=== PATIENT | male | born 1965 | race Caucasian/White ===

== ENCOUNTER 2024-11-15 09:47 | Outpatient (CLI) | payer OTHER, SELFPAY ==
--- OUTSIDE RECORDS SUMMARY | 2024-11-15 09:56 | XMS_ITS | Clinical Summary ---
Author Organization [facility] Sena Marie Address [address] [place] [address] Phone Care Team Providers Care Pan Operator Name Role Phone Violeta Mckeon MD Primary Care Prov ider Allergies No known active allergies Medications gabapentin (NEURONTIN) 100 MG capsule Take 300 mg by mouth in the morning and 300 mg in the evening and 300 mg before bedtime. Active atorvastatin (LIPITOR) 40 MG tablet Take 80 mg by mouth 1 (one) time each day Active metoprolol succinate XL (TOPROL XL) 50 MG 24 hr tablet Take 100 mg by mouth 1 (one) time each day Do not crush or chew. Active meloxicam (MOBIC) 7.5 MG tablet Take 7.5 mg by mouth in the morning and 7.5 mg in the evening. Active omeprazole (PriLOSEC) [address] capsule Take 40 mg by mouth in the morning. Active hydroCHLOROthia zide 25 MG tablet Take 25 mg by mouth 1 (one) time each day Active hydrALAZINE 50 MG tablet Take 1 tablet (50 mg total) by mouth in the morning and 1 tablet (50 mg total) in the evening and 1 tablet (50 mg total) before bedtime. 90 tablet 3 01/01/2024 Active hydrOXYzine (ATARAX) 10 MG tablet 12/02/2023 Active cloNIDine (CATAPRES) 0.1 MG tablet 01/24/2022 Active amLODIPine (NORVASC) 10 MG tablet Take 1 tablet (10 mg total) by mouth every night 30 tablet 3 07/01/2024 Active Active Problems Problem Noted Date Diagnosed Date Carcinoma in situ of prostate 07/01/2024 Prostate specific antigen above reference range 01/01/2024 Acute myocardial infarction, unspecified site, episode of care unspecified 06/24/2023 Chronic kidney disease 06/24/2023 Coronary atherosclerosis of unspecified type of vessel, kenaitze or graft 06/24/2023 Esophageal reflux 06/24/2023 Essential hypertension 06/24/2023 Osteoarthrosis, unspecified whether generalized or localized, involving unspecified site 06/24/2023 Other and unspecified hyperlipidemia 06/24/2023 Sleep apnea 06/24/2023 Obesity 06/24/2023 Smoker 06/24/2023 Hypertensive chronic kidney disease, benign, with chronic kidney disease stage I through stage IV, or unspecified 06/24/2023 Social History Tobacco Use Types Packs/Day Years Used Date Smoking Tobacco: Every Day Cigarettes Smokeless Tobacco: Current Tobacco Cessation:Ready to Q uit: Not Asked; Counseling Given: Not Answered Alcohol Use Standard Drinks/Week Comments Yes 2 (1 standard drink = 0.6 oz pur e alcohol) Sex and Gender Information Value Date Recorded Sex Assigned at Not on file Legal Sex Male 7:19 PM EST Gender Identity Not on file Sexual Orientation Not on file Last Filed Vital Signs Vital Sign Reading Time Taken Comments Blood Pressure 180/70 07/01/2024 1:12 PM PDT Pulse 65 07/01/2024 1:12 PM PDT Temperature - - Respiratory Rate - - Oxygen Saturation - - Inhaled Oxygen Concentration - - Weight 97.1 kg (214 lb) 07/01/2024 1:12 PM PDT Height 182.9 cm (6') 07/01/2024 1:12 PM PDT Body Mass Index 29.02 07/01/2024 1:12 PM PDT Plan of Treatment Upcoming Encounters Date Type Department Care Team (Late st Contact Info) Description 12/23/2024 1:00 PM PDT Office Visit [facility] Marie [address] [place] [address] Joaquina Perez MD [address] [place] [phone] Health Maintenance Due Date Last Done Comments Hepatitis B Vaccine (1 of 3 - 19+ 3-dose series) 12/17 Pneumococcal Vaccine: 50+ Years (1 of 2 - PCV) 987 Colorectal Cancer Screening: Annual FOBT 12/17/2016 Colorectal Cancer Screening: Colonoscopy 12/17/2016 Colorectal Cancer Screening: Sigmoidoscopy 12/17/2016 Influenza Vaccine (#1) 2024 Insurance Care [facility] Cigna Care Teams Pan Operator Relationship Specialty Start Date End Date Violeta Mckeon MD [facility] [address] PCP - General Family Medicine 05/22/23
--- OUTSIDE RECORDS SUMMARY | 2024-11-15 09:56 | XMS_ITS | Encounter Summary ---
Author Name [facility] [place] Organization [facility] [place] Address [address] [place] [address] Insurance Providers: All historical and current Section Date Range: From patient's date of to the date document was created. This section includes the names of all active insurance providers for the patient. Insurance Provider Type of Coverage Plan Name Start of Policy Coverage End of Policy Coverage Group Number Member ID Insurance Provider's Telephone Number Policy Case's Name Patient's Relationship to Policy Case NavigatorMD [facility] [address] [place] Apr 07, 2022 [id number] [facility] PATIENT [employer] MENTAL HEALTH [place] Apr 07, 2022 [id number] [phone] [facility] [place] [id number] PRESCRIPT ION CIGUG [id number] Apr 07, 2022 [id number] [facility] PATIENT Selected Encounter This section includes the information on record at [place] for the Encounter. Date/Time Encounter Type Encounter Description Reason Provider Source May 17, 2024 09:00 AM Outpatient Encounter GENERAL INTERNAL MEDICINE ICD-10-CM Z02.89 Encounter for other administrative examinations SHILOH PIEDRA Encounter Template Text not used by [place] Assessments - Encounter Diagnoses This section includes the primary and secondary diagnoses documented for the Encounter. Date/Time Primary/Secondary Diagnosis Diagnosis Name Provider Source May 17, 2024 11:26 AM PRIMARY Encounter for other administrative examinations CARYN PIEDRA [facility] Plan of Treatment: Future Appointments (+ 6 months) and Future Tests (+/- 45 days) The Plan of Treatment section includes future care activities for the patient from all [place] treatmentfacilities. This section includes future appointments and future orders which are active, pending or scheduled. Future Appointments This section includes appointments that were scheduled to occur 6 months from the date of the Encounter, up to a maximum of 20 appointments. The data comes from all [place] treatment facilities. Appointment Date/Time Appointment Type Appointme nt Facility Name Jun 03, 2024 10:00 AM AMBULATORY - MEDICINE [facility] Encounter Notes: All associated encounter notes This section contains the clinical notes associated to the Encounter. Date/Time Encounter Note(s) Provider Source May 17, 2024 09:00 AM C & P EXAMINATION NOTE: LOCAL TITLE: C&P EXAMINATION STANDARD TITLE: C & P EXAMINATION NOTE DATE OF NOTE: MAY 17, 2024@09:00 ENTRY DATE: MAY 17, 2024@09:57:33 AUTHOR: BELA PIEDRA EXP COSIGNER: URGENCY: STATUS: COMPLETED MALE REPRODUCTIVE ORGAN CONDITIONS (INCLUDING PROSTATE CANCER) Disability Benefits Questionnaire Name of Claimant/: Bonilla Benton Note to examiner - The is applying to the [employer] (VA) for disability benefits. VA will consider the information you provide on this questionnaire as part of their evaluation in processing the 's claim. Is this DBQ being completed in conjunction with a VA C&P Examination Request? [X] Yes [ ] No How was the examination completed? (check all that apply) [X] In-person examination [ ] Records reviewed [ ] Examination via approved video telehealth [ ] Other, please specify in comments box Comments: Acceptable Clinical Evidence ([place]) -------- Indicate the method used to obtain medical information to complete this document: [ ] Review of available records (without in-person or video telehealth examination) using the Acceptable Clinical Evidence ([place]) process because the existing medical evidence provided sufficient information on which to prepare the questionnaire and such an examination will likely provide no additional relevant evidence. [ ] Review of available records in conjunction with an interview with the [place] (without in-person or telehealth examination) using the [place] process because the existing medical evidence supplemented with an interview provided sufficient information on which to prepare the questionnaire and such an examination would likely provide no additional relevant evidence. Evidence Review Evidence reviewed (check all that apply): [X] [place] electronic health record [X] [place] e-folder Evidence Comments: Tab A- PMR Prostate cancer Receipt date:03/11/2024 Document ID: {[id number]} Physician Details: [facility] [address] [place] [address] [address] [address] 02/19/2024 PROSTATE BIOPSY PATHOLOGY REPORT: ADENOCARCINOMA OF THE PROSTATE Tab B- POA 077/SUGEY, Y-N Receipt date:08/12/2006 Document ID: {[id number]}:NOTED 1. Diagnosis Note: These are condition(s) for which an evaluation has been requested on the exam request form (Internal [place]) or for which the [place] has requested medical evidence be provided for submission to [place]. 1A. List the claimed condition(s) that pertain to this questionnaire: Prostate cancer Note: These are the diagnoses determined during this current evaluation of the claimed condition(s) listed above. If there is no diagnosis, if the diagnosis is different from a previous diagnosis for this condition, or if there is a diagnosis of a complication due to the claimed condition, explain your findings and reasons in the remarks section. Date of diagnosis can be the date of the evaluation if the clinician is making the initial diagnosis or an approximate date determined through record review or reported history. 1B. Does the [place] now have or has he ever been diagnosed with any conditions of the male reproductive system? [X] Yes [ ] No If yes, complete Item 1C 1C. Select diagnoses associated with the claimed condition(s). Check all that apply. [X] Neoplasms of the male reproductive system, including prostate cancer ICD code: C61 Date of diagnosis: February 2024 2. Medical History 2A. Describe the history, including onset and course, of the 's male reproductive organ condition(s), including prostate cancer. 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 Contention prostate cancer. The states that in February 2024 he was diagnosed with prostate cancer on prostate biopsy done to evaluate high PSA and further evaluation radiation therapy is planned later this month. He reports having no associated symptoms, and no history of other genitourinary procedure or surgery. 2B. Does the [place]'s treatment plan include taking continuous medication for the diagnosed condition? [ ] Yes [X] No 2C. Has the had an orchiectomy? [ ] Yes [X] No For VA purposes, renal dysfunction includes evidence demonstrating the following for at least 3 consecutive months during the past 12 months: glomerular filtration rate (GFR) of less than 60 mL/min/1.73m2; or GFR from 60 to 89 mL/min/1.73m2 and the presence of at least one of the following: recurrent red blood cell (RBC) casts, white blood cell (WBC) casts, granular casts, structural kidney abnormalities (cystic, obstructive, or glomerular), or increased secretion of protein in the urine (proteinuria). GFR, estimated GFR (eGFR), and creatinine based approximations of GFR will be accepted for evaluation purposes when determined to be appropriate and calculated by a medical professional. Note: If the medical record contains multiple lab tests during this 12 month period, by at least 3 months, and there is no evidence to contradict those findings in the interim period, [place] will accept that the demonstrated renal dysfunction has persisted for at least 3 consecutive months during the past 12 months. 2D. Is there any renal dysfunction due to any conditions listed in the diagnosis section? [ ] Yes [X] No 3. Voiding Dysfunction 3A. Does the have a voiding dysfunction? [ ] Yes [X] No If yes, complete the remainder of section III. 3B. Etiology of voiding dysfunction: No response provided 3C. Does the voiding dysfunction cause urine leakage? [ ] Yes [ ] No 3D. Does the voiding dysfunction require the use of an appliance? [ ] Yes [ ] No 3E. Does the voiding dysfunction cause increased urinary frequency? [ ] Yes [ ] No 3F. Does the voiding dysfunction cause signs or symptoms of obstructed voiding? [ ] Yes [ ] No 4. Erectile Dysfunction 4A. Does the [place] have erectile dysfunction? [ ] Yes [X] No 5. Retrograde Ejaculation 5A. Does the [place] have retrograde ejaculation? [ ] Yes [X] No 6. Male Reproductive Organ Infections, Including Urinary Tract Infections 6A. Does the [place] have a history of chronic prostatitis, urethritis, epididymitis, orchitis, or urinary tract infections? [ ] Yes [X] No 7. Physical Exam 7A. Penis [ ] Normal [X] Not examined per [place]'s request [ ] Not examined per [place]'s request; reports normal anatomy with no penile deformity or abnormality [ ] Not examined; penis exam not relevant to condition [ ] Abnormal 7B. Testes [ ] Normal [X] Not examined per 's request [ ] Not examined per 's request; reports normal anatomy with no testicular deformity or abnormality [ ] Not examined; testicular exam not relevant to condition [ ] Abnormal 7C. Epididymis [ ] Normal [X] Not examined per 's request [ ] Not examined per 's request; [place] reports normal anatomy of epididymis with no deformity or abnormality [ ] Not examined; epididymis exam not relevant to condition [ ] Abnormal 7D. Prostate [X] Not examined per [place]'s request 8. Tumors and Neoplasms 8A. Does the [place] currently have, or has had, a benign or malignant neoplasm or metastases related to any condition in the diagnosis section? [X] Yes [ ] No If yes, complete the remainder of section VIII. 8B. Is the neoplasm [X] Malignant (If malignant complete the following): [X] Active [ ] In remission [X] Primary [ ] Secondary (metastatic) 8C. Has the completed treatment or is the [place] currently undergoing treatment for a benign or malignant neoplasm or metastases? [ ] Yes [X] No; watchful waiting No response provided 8D. Does the [place] currently have any residuals or complications due to the neoplasm (including metastases) or its treatment, other than those already documented in the report above? [ ] Yes [X] No 8E. If there are additional benign or malignant neoplasms or metastases related to any of the diagnoses in the diagnosis section, describe using the above format. No response provided 9. Other Pertinent Physical Findings, Complications, Conditions, Signs, Symptoms, and Scars 9A. Does the have any other pertinent physical findings, complications, conditions, signs or symptoms related to any conditions listed in the diagnosis section above? [ ] Yes [X] No 9B. Does the have any scars or other disfigurement (of the skin) related to any conditions or to the treatment of any conditions listed in the diagnosis section? [ ] Yes [X] No 10. Diagnostic Testing Note: If imaging studies, diagnostic procedures or laboratory testing have been performed and reflects the 's current condition, provide most recent results; no further studies or testing are required for this examination. 10A. Has a biopsy been performed? [X] Yes [ ] No Date of biopsy: 02/19/2024 Results: PROSTATE BIOPSY PATHOLOGY REPORT: ADENOCARCINOMA OF THE PROSTATE 10B. Are there any other significant diagnostic test findings or results related to the claimed condition(s) and/or diagnosis(es) that were reviewed in conjunction with this examination? [ ] Yes [X] No 11. Functional Impact Note: Provide the impact of only the diagnosed condition(s), without consideration of the impact of other medical conditions or factors, such as age. 11A. Regardless of the [place]'s current employment status, do the conditions listed in the diagnosis section impact his/her ability to perform any type of occupational task (such as standing, walking, lifting, sitting, etc.)? [ ] Yes [X] No 12. Remarks 12A. Remarks (if any - please identify the section to which the remark pertains when appropriate). The was advised that this evaluation is performed for C&P purposes only, and follow-up with his physician for medical care is necessary. /lavonne/ Bela Piedra MD. Staff Physician Signed: 05/17/2024 09:57 BELA PIEDRA [facility]
--- OUTSIDE RECORDS SUMMARY | 2024-11-15 09:56 | XMS_ITS ---
Author Name [facility] [place] Organization [facility] [place] Address [address] [place] [address] Insurance Providers: All historical and current Section Date Range: From patient's date of to the date document was created. This section includes the names of all active insurance providers for the patient. Insurance Provider Type of Coverage Plan Name Start of Policy Coverage End of Policy Coverage Group Number Member ID Insurance Provider's Telephone Number Policy Case's Name Patient's Relationship to Policy Case [employer] [facility] [place] [place] Apr 07, 2022 [id number] [facility] PATIENT [employer] MENTAL HEALTH SUPER [place] [facility] [place] Apr 07, 2022 [id number] [facility] PATIENT [id number] PRESCRIPT ION CIGUG [id number] Apr 07, 2022 [id number] [facility] PAT[facility] Selected Encounter This section includes the information on record at [place] for the Encounter. Date/Time Encounter Type Encounter Description Reason Provider Source Jun 03, 2024 10:00 AM Outpatient Encounter GENERAL INTERNAL MEDICINE ICD-10-CM Z02.89 Encounter for other administrative examinations SHILOH PIEDRA Encounter Template Text not used by [place] Assessments - Encounter Diagnoses This section includes the primary and secondary diagnoses documented for the Encounter. Date/Time Primary/Secondary Diagnosis Diagnosis Name Provider Source Jun 04, 2024 10:03 AM PRIMARY Encounter for other administrative examinations [facility] Encounter Notes: All associated encounter notes This section contains the clinical notes associated to the Encounter. Date/Time Encounter Note(s) Provider Source Jun 03, 2024 10:00 AM C & P EXAMINATION NOTE: LOCAL TITLE: C&P EXAMINATION STANDARD TITLE: C & P EXAMINATION NOTE DATE OF NOTE: JUN 03, 2024@10:00 ENTRY DATE: JUN 03, 2024@10:50:19 AUTHOR: BELA PIEDRA EXP COSIGNER: URGENCY: STATUS: COMPLETED Medical Opinion Disability Benefits Questionnaire Name of patient/[place]: Bonilla Benton [place] and Evidence Review Indicate method used to obtain medical information to complete this document: [X] Review of available records (without in-person or video telehealth examination) using the Acceptable Clinical Evidence ([place]) process because the existing medical evidence provided sufficient information on which to prepare the questionnaire and such an examination will likely provide no additional relevant evidence. Evidence Review Evidence reviewed (check all that apply): [X] VA e-folder [X] VA electronic health record Evidence Comments: MEDICAL OPINION SUMMARY RESTATEMENT OF REQUESTED OPINION: a. Opinion from general remarks: CLAIM TYPE: SUPPLEMENTAL SPECIAL CONSIDERATIONS: NOT APPLICABLE INSUFFICIENT EXAM: NO ELECTRONIC CLAIMS FOLDER AVAILABLE. SUSU Generation Date: 05/31/2024 02:59:10 PM EST [place] Name: BONILLA BENTON [id number] [facility] [address] Phone: Alternate Phone: Email: [email or web address] File Number: [id number] ICN: [id number] : 1965 Gender: Male Exam Jurisdiction RO: 377 Sensitivity Level: 0 POA/VSO: 077 - AMVETS AMVETS AMVETS [facility] [address] [place] [address] [facility] Branch(es) of Service: Flat Entered: Jan 27, 1987 Released: Feb 04, 2007 Era(s) of Service: [employer] Date of claim: Mar 11, 2024 Attention C&P clinical staff - Claimants residing zip codes and ERRA instructions EP Code: 020 Claim Label: Nory [id number] (020) Benefit Type: CPL Post-Discharge Claim Payee Number: [id number] Remand: NO The will need to report for the following exam(s) unless the [place] process is utilized. Clinician: If using the [place] process to complete the DBQ, please explain the basis for the decision not to examine the [place], and identify the specific materials reviewed to complete the DBQ. Also if the exam is completed using [place], please review the [place]'s claims folder and indicate so in the exam report. DBQ Medical Opinion ___ The following contentions need to be examined: prostate cancer Classification: Cancer - Genitourinary Type: NEW Contention Priority Issues: PACT Is there a gender preference for the examiner? NO Standard Language Output Text: The [place] is claiming service connection for prostate cancer. Please examine the for a chronic disability related to his or her claimed condition and indicate the current level of severity. TYPE OF MEDICAL OPINION REQUESTED: Toxic Exposure Risk Activities. Does the [place] have a diagnosis of (a) prostate cancer that is at least as likely as not (likelihood is at least approximately balanced or nearly equal, if not higher) caused by (the) fine particular matter, AFFF foam, asbestos after considering the total potential exposure through all applicable deployments of the and the synergistic combined effect of all toxic exposure risk activities of the [place]? Rationale must be provided in the appropriate section. Please review the Veterans electronic folder(s) and state that it was reviewed in your report. Please provide medical opinion and rationale with supporting evidence. Additional Information: Document Type: Medical Treatment Record - Non-Government Facility, Subject: [facility] - Pet Scan 04/01/2024, Annotation: , Document ID: [id number], Upload Date: 04/09/2024, Page number: 1 Document Type: [place] Vamsi, Subject: Sec. 1119 Covered , Annotation: , Document ID: [id number], Upload Date: 03/18/2022, Page number: 1 Document Type: [facility], Subject: Sec 1117 Covered , Annotation: , Document ID: [id number], Upload Date: 06/27/2022, Page number: 1 Document Type: ALEXANDRA Memorandum, Subject: ALEXANDRA Memorandum, Annotation: , Document ID: [id number], Upload Date: 05/31/2024, Page number: 1 Document Type: C&P Exam, Subject: DBQ Male Reproductive System, Annotation: , Document ID: [id number], Upload Date: 05/17/2024, Page number: 1 Document Type: Medical Treatment Record - Non-Government Facility, Subject: [facility] Juan Daniel Cunningham MD 12/17/2023, Annotation: , Document ID: [id number], Upload Date: 03/16/2024, Page number: 1 Document Type: Medical Treatment Record - Non-Government Facility, Subject: [facility] - Prostate 02/05/2024, Annotation: , Document ID: [id number], Upload Date: 04/09/2024, Page number: 1 Document Type: Correspondence, Subject: null, Annotation: , Document ID: [id number], Upload Date: 03/11/2024, Page number: 1 Document Type: ILER IES Record, Subject: ILER-Negative, Annotation: , Document ID: [id number], Upload Date: 03/12/2024, Page number: 1 Document Type: DPRIS Response, Subject: DPRIS - , Annotation: [employer] (asbestos) pg. 23, 29, General Shipboard Firefighting pgs. 24, 66-, 71, Firefighting Luggage Attendant pgs. 24, 66-67, 71, Entry Exam pg. 52-56, Document ID: [id number], Upload Date: 06/19/2023, Page number: 1 For this Contention, [facility] expects a results package to at minimum include data pertaining to the following DBQ(s): DBQ Medical Opinion b. Indicate type of exam for which opinion has been requested: male reproductive TYPE OF MEDICAL OPINION PROVIDED: [ MEDICAL OPINION FOR TOXIC EXPOSURE RISK ACTIVITIES (ALEXANDRA) ] a. The claimed condition was at least as likely as not (likelihood is at least approximately balanced or nearly equal, if not higher) caused by the indicated toxic exposure risk activity(ies), after considering the total potential exposure through all applicable deployments of the and the synergistic, combined effect of all toxic exposure risk activities of the [place]. c. Provide rationale: Any and all tabs related to the claim condition in [facility] and [facility] treatment records were reviewed. 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 23, 29 & General Shipboards Firefighting & Firefighting Luggage Attendant pgs. 24, 66, 71 Document Type: [place] Vamsi, Subject: Sec. 1119 Covered , Annotation: , Document ID: [id number]: Document Type: [place] Vamsi, Subject: Sec 1117 Covered [place], Annotation: , Document ID: [id number]: March 09, 2022 and May 03, 2022 [place] Memos: [facility] [employer] Information System (GWVIS) confirms that the [place] named above served in the [facility] theater of operations, as defined by 38 CFR 3.317(e)(2), for at least one day between: November 05, 1990, through December 15, 2000 Document Type: ILER IES Record, Subject: ILER-Negative, Annotation: , Document ID: [id number]: No information reported Document Type: DPRIS Response, Subject: DPRIS - , Annotation: [employer] (asbestos) pg. 23, 29, General Shipboard Firefighting pgs. 24, 66-67, 71, Firefighting Luggage Attendant pgs. 24, 66-67, 71, Entry Exam pg. 52-56, Document ID: [id number], Upload Date: 06/19/2023: REVIEWED Document Type: C&P Exam, Subject: DBQ Male Reproductive System, Annotation: , Document ID: [id number], Upload Date: 05/17/2024: May 17, 2024 [place] C&P exam report with prostate cancer diagnosis in February 2024 Document Type: Medical Treatment Record - Non-Government Facility, Subject: [facility] Juan Daniel Cunningham MD 12/17/2023, Annotation: , Document ID: [id number]: December 17, 2023 urology record - elevated PSA with plan to further workup and likely prostate biopsy Document Type: Medical Treatment Record - Non-Government Facility, Subject: [facility] - Prostate 02/05/2024, Annotation: , Document ID: [id number]: February 05, 2024 prostate MRI: There are two suspicious PIRADS lesions as follows: Target #1 (SHALINI #1) A 1.5 cm PIRADS-5 within the paramidline midgland to apex as described above. There is contact of the capsular margin by 1.3 cm., and Target#2 (SHALINI #2) A 0.4 cm cm PIRADS-4 within the right peripheral zone base as described above. There is no evidence of macroscopic extra-capsular extension, neurovascular invasion or seminal vesical invasion. prostate gland is enlarged Document Type: Medical Treatment Record - Non-[facility] Facility, Subject: [facility] - Pet Scan 04/01/2024, Annotation: , Document ID: [id number]: April 01, 2024 PET scan: No evidence of metastatic disease Document Type: Correspondence, Subject: null, Annotation: , Document ID: [id number], Upload Date: 03/11/2024: Pathology report of prostate biopsy from February 19, 2024: Adenocarcinoma of the prostate DD 214 .S. 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 The 's post service treatment records reveal prostate cancer diagnosis in February 2024. The current medical literature does not support a causal relationship between the development of prostate cancer and AFFF and/or asbestos exposure. That said, prostate cancer is a presumptively considered by public law to be related to [employer] service with specific environmental hazards/burn pits exposure according to the [employer] Public Health Website (PACT ACT). /es/ Bela Piedra MD. Staff Physician Signed: 06/03/2024 10:50 PIEDRABELA BUENOIDREINA [facility]
--- OUTSIDE RECORDS SUMMARY | 2024-11-15 09:57 | XMS_ITS | Continuity of Care Document ---
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 It does not include entries that were removed or entered in error. 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 Positive Interpretation Unknown Organization Aftercare Following Surgery Active Condition [facility] URINARY TRACT INFECTION Inactive Condition DoD Blood Pressure Isolated Elevated Active Condition [facility] INGUINAL HERNIA Inactive Condition [facility] Aftercare Following Surgery Of Digestive System Inactive Condition [facility] Dietary Counseling Pertaining To Specific Condition Active Condition [facility] Inquiry And Counseling: Functional Status At Home Active Condition [facility] DYSPLASTIC NEVUS Active Condition [facility] visit for: refer patient without exam or treatment Active Condition [facility] OVERWEIGHT Active Condition [facility] NICOTINE DEPENDENCE Active Condition [facility] visit for: screening exam Active Condition [facility] visit for: ears / hearing exam Active Condition [facility] Physical Examination Inactive Condition Custodial PE; addendum; pending VA claims exam and PE [facility] Administrative Evaluation Services Inactive Condition [facility] SLEEP APNEA ADULT Active Condition These results will be forwarded to Dr Ortiz for use in further treatment. [facility] visit for: services physical Inactive Condition [facility] FATIGUE Active Condition as noted a nathaniel, needs repeat test. Clinic will contact patient to arrange. 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 Ed pt re: hot compress BID-TID OU and AT's QID/PRN OU. [facility] REFRACTIVE ERROR - MYOPIA Active Condition No change to SR x at this time. [facility] VISUAL DISTURBANCES Active Condition Pt states intermittent visual blur at near OU -- two episodes last week, lasts 5-10 seconds. May be related to moderate dry eye syndrome. Will conduct HVF for diagnostic testing. DFE is normal. [facility] DISORDERS OF MUSCLE, LIGAMENT, AND FASCIA Active Condition [facility] OSTEOARTHRITIS LOCALIZED PRIMARY - KNEE Active Condition [facility] CHONDROMALACIA Active Condition [facility] TENDONITIS PATELLAR Active Condition Do[facility] PATELLOFEMORAL SYNDROME Active Condition [facility] ACUTE MENISCAL TEAR LATERAL Active Condition possible- must be ruled out [facility] NUMMULAR ECZEMATOUS DERMATITIS Active Condition [facility] THIGH STRAIN RIGHT Inactive Condition [facility] Diagnosis: ICD-10-CM Z02.89 Encounter for other administrative examinations Active Diagnosis [facility] Medications Combined list of outpatient medications from Department of Defense and Veterans Affairs facilities.Medications provided include 1) outpatient medications from the last 15 months, and 2) patient-reported medications. Medication Details Route Status Patient Instructions Prescription Expires Prescription Number Last Dispense Date Ordering Provider Order Date Order Qty Source amLODIPine 10 mg oral tablet 1 tab(s), Oral, Daily, # 90 tab(s), 3 total refill(s ), Maintena nce, Pharmacy : [facility] Oral (given by mouth) Ordered 2 2021 90.0 [id number]-[id number] [facility] amLODIPine 5 mg oral tablet 1 tab(s), Oral, Daily, # 90 tab(s), 3 total refill(s ), Maintena nce Oral (given by mouth) Discont inued 01/16/2022 1 2021 90.0 [id number] [facility] Padmin[place] amLODIPine/ valsartan/h ydrochlorot hiazide 5 mg-160 mg-25 mg oral tablet amLODIPi ne/valsa rtan/hyd rochloro thiazide 5 mg-160 mg-25 mg oral tablet Start Date: 02/03/20 Stop Date: 09/25/20 Status: Disconti nushirley Repeat number: 1 Discont inued 09/25/20202020 No Facilit y Access amLODIPine/ valsartan/h ydrochlorot hiazide 5 mg-160 mg-25 mg oral tablet 1 tab(s), Oral, Daily, for blood pressure , # 90 tab(s), 3 total refill(s ), Maintena nce Oral (given by mouth) Discont inued 09/26/20202020 90.0 [id number] 81 mg oral delayed release tablet 1 tab(s), Oral, every 24 hr, # 30 tab(s), 0 total refill(s ), Maintena nce, Pharmacy : [facility] Oral (given by mouth) Ordered 2 2021 30.0 [id number]-N [facility] gabapentin 300 mg capsule 300 mg, Oral, every day at bedtime, # 30 EA, 2 total refill(s ), Hard Stop Oral (given by mouth) Discont inued 12/12/2020 1 2020 30.0 Ambulat ory Pharmac y hydroCHLORO thiazide 25 mg, Oral, Tablet, First Dose: 01/15/22 11:00:00 AM CDT, 01/15/20 16:41:00 PDT Oral (given by mouth) Complet ed 01/15/20222021 0029AN [facility] hydroCHLORO thiazide 25 mg oral tablet 1 tab(s), Oral, Daily, for blood pressure , # 90 tab(s), 3 total refill(s ), Maintena nce Oral (given by mouth) Discont inued 01/16/2022 1 2021 90.0 [id number] [facility] [place] hydroCHLORO thiazide 25 mg oral tablet 1 tab(s), Oral, Daily, for blood pressure , # 90 tab(s), 3 total refill(s ), Maintena nce, Pharmacy : [facility] Oral (given by mouth) Ordered 2 2021 90.0 [id number]-N [facility] levoFLOXaci n 750 mg oral tablet 1 tab(s), Oral, every 24 hr, X 14 days, # 14 tab(s), 0 total refill(s ), Acute, 07/15/21 6:36:00 PM CDT, Pharmacy : [facility] Oral (given by mouth) Complet ed 07/15/2021 2 2021 14.0 0029AN [facility] Lipitor 80 mg oral tablet 1 tab(s), Oral, every 24 hr, # 30 tab(s), 0 total refill(s ), Maintena nce, Pharmacy : [facility] Oral (given by mouth) Ordered 2 2021 30.0 0029AN [facility] naproxen 500 mg oral tablet 1 tab(s), Oral, BID, X 14 days, # 28 tab(s), 0 total refill(s ), Acute, 07/15/21 6:36:00 PM CDT, Pharmacy : [facility] Oral (given by mouth) Complet ed 07/15/2021 2 2021 28.0 0029AN [facility] propranolol 60 mg oral tablet 1 tab(s), Oral, BID, # 180 tab(s), 3 total refill(s ), Maintena nce Oral (given by mouth) Ordered 2020 180.0 [id number] [facility] Tylenol 325 mg oral tablet 2 tab(s), Oral, every 4 hr, PRN pain or fever, X 14 days, # 50 tab(s), 0 total refill(s ), Acute, 07/15/21 6:36:00 PM CDT, Pharmacy : [facility] Oral (given by mouth) Complet ed 07/15/2021 2 2021 50.0 0029AN [facility] valsartan 160 mg oral tablet 1 tab(s), Oral, Daily, for blood pressure , # 90 tab(s), 3 total refill(s ), Maintena nce Oral (given by mouth) Discont inued 01/16/2022 1 2021 90.0 [id number] valsartan 160 mg oral tablet 1 tab(s), Oral, Daily, for blood pressure , # 90 tab(s), 3 total refill(s ), Nita gonzalez, Pharmacy : [facility] Oral (given by mouth) Ordered 2 2021 90.0 0029A-N [facility] Allergies, Adverse Reactions, Alerts Combined list of allergies from Department of Defense and Veterans Affairs facilities. It does not include entries that were removed or entered in error. Substance Category Reaction Severity Reaction type Status Date Reported Comments Source No Known Allergies Drug allergy (disorder) active 05/14/2007 [facility] Immunizations Combined list of available immunizations from the Department of [facility] and Veterans Affairs facilities. Immunization Series Date Given Administered By Site Reaction Lot Number CVX Code Drug Shoulder Puncher Status Comments Source COVID-19 ([employer]), VECTOR-NR, [id number], PF, 0.5 ML 1 2020 212 complet ed HISTORICA L INFORMATI ON - FROM OTHER [facility] tetanus, diphtheria, acellular pertu is 2014 zzRig ht Arm [id number] sanofi pasteur complet ed tetanus, diphtheri a, acellular pertussis 09/15/14 Given Ambulat ory Pharmac y tetanus toxoid, reduced diphtheria toxoid, and acellular pertu is vaccine, adsorbed 0 2014 Unknown, Provider [id number] Sanofi Pasteur ([facility]) complet ed tetanus toxoid, reduced diphtheri a toxoid, and acellular pertussis vaccine, adsorbed DoD typhoid vaccine, inactivated 2004 UNKNOWN 101 Unknown complet ed typhoid vaccine, inactivat ed 05/17/04 Given Ambulat ory Pharmac y typhoid vaccine, parenteral, other than acetone-kille d, dried 1 2004 Unknown, Provider UNKNOWN 41 Unknown (UNK) complet ed typhoid vaccine, parentera l, other than acetone-k illed, dried [facility] influenza virus vaccine,split 2004 [id number] 15 Unknown complet ed influenza virus vaccine,s plit 04/26/04 Given Ambulat ory Pharmac y influenza virus vaccine, split virus (incl. purified surface antigen)-reti red CODE 1 2004 Unknown, Provider [id number] 15 Other (OTH) complet ed influenza virus vaccine, split virus (incl. purified surface antigen)- retired CODE DoD influenza virus vaccine,split 2003 [id number] [employer] complet ed influenza virus vaccine,s plit 04/28/03 Given Ambulat ory Pharmac y influenza virus vaccine, split virus (incl. purified surface antigen)-reti red CODE 1 2003 Unknown, Provider [id number] Ruddy (EVN) complet ed influenza virus vaccine, split virus (incl. purified surface antigen)- retired CODE DoD influenza virus vaccine,split 2001 [id number] 15 Unknown complet ed influenza virus vaccine,s plit 02/24/02 Given Ambulat ory Pharmac y influenza virus vaccine, split virus (incl. purified surface antigen)-reti red CODE 1 2001 Unknown, Provider [id number] 15 Other (OT) complet ed influenza virus vaccine, split virus (incl. purified surface antigen)- retired CODE DoD typhoid vaccine, inactivated 2001 [id number] sanofi pasteur complet ed typhoid vaccine, inactivat ed 12/23/01 Given Ambulat ory Pharmac y typhoid vaccine, parenteral, other than acetone-kille d, dried 1 2001 Unknown, Provider [id number] Sanofi Pasteur ([facility]) complet ed typhoid vaccine, parentera l, other than acetone-k illed, dried DoD influenza virus vaccine,split 2000 [id number] 15 Unknown complet ed influenza virus vaccine,s plit 04/03/01 Given Ambulat ory Pharmac y influenza virus vaccine, split virus (incl. purified surface antigen)-reti red CODE 1 2000 Unknown, Provider [id number] 15 Other (OT) complet ed influenza virus vaccine, split virus (incl. purified surface antigen)- retired CODE DoD yellow fever vaccine 1999 UNKNOWN 37 Unknown complet ed yellow fever vaccine 11/12/99 Given Ambulat ory Pharmac y typhoid vaccine, inactivated 1999 UNKNOWN 101 Unknown complet ed typhoid vaccine, inactivat ed 11/12/99 Given Ambulat ory Pharmac y yellow fever vaccine 1 1999 Unknown, Provider UNKNOWN 37 Unknown (UNK) complet ed yellow fever vaccine DoD typhoid vaccine, parenteral, other than acetone-kille d, dried 1 1999 Unknown, Provider UNKNOWN 41 Unknown (UNK) complet ed typhoid vaccine, parentera l, other than acetone-k illed, dried DoD influenza virus vaccine,split 1997 UNKNOWN 15 Unknown complet ed influenza virus vaccine,s plit 03/14/98 Given Ambulat ory Pharmac y influenza virus vaccine, split virus (incl. purified surface antigen)-reti red CODE 1 1997 Unknown, Provider UNKNOWN 15 Unknown (UNK) complet ed influenza virus vaccine, split virus (incl. purified surface antigen)- retired CODE DoD tetanus-dipht h toxoids (Td) adult/adol 1997 UNKNOWN 09 Unknown complet ed tetanus-d iphth toxoids (Td) adult/ado l 02/13/98 Given Ambulat ory Pharmac y tetanus and diphtheria toxoids, adsorbed, preservative free, for adult use (2 Lf of tetanus toxoid and 2 Lf of diphtheria toxoid) 1 1997 Unknown, Provider UNKNOWN 09 Unknown (UNK) complet ed tetanus and diphtheri a toxoids, adsorbed, preservat peyton free, for adult use (2 Lf of tetanus toxoid and 2 Lf of diphtheri a toxoid) DoD hepatitis A adult vaccine 1997 UNKNOWN 52 Unknown complet ed hepatitis A adult vaccine 12/01/97 Given Ambulat ory Pharmac y typhoid vaccine, inactivated 1997 UNKNOWN 101 Unknown complet ed typhoid vaccine, inactivat ed 12/01/97 Given Ambulat ory Pharmac y typhoid vaccine, parenteral, other than acetone-kille d, dried 1 1997 Unknown, Provider UNKNOWN 41 Unknown (UNK) complet ed typhoid vaccine, parentera l, other than acetone-k illed, dried DoD hepatitis A vaccine, adult dosage 2 1997 Unknown, Provider UNKNOWN 52 Unknown (UNK) complet ed hepatitis A vaccine, adult dosage DoD yellow fever vaccine 1996 UNKNOWN 37 Unknown complet ed yellow fever vaccine 04/04/97 Given Ambulat ory Pharmac y yellow fever vaccine 1 1996 Unknown, Provider UNKNOWN 37 Unknown (UNK) complet ed yellow fever vaccine DoD poliovirus vaccine, live, oral 1996 UNKNOWN 02 Unknown complet ed polioviru s vaccine, live, oral 02/14/97 Given Ambulat ory Pharmac y trivalent poliovirus vaccine, live, oral 1 1996 Unknown, Provider UNKNOWN 02 Unknown (UNK) complet ed trivalent polioviru s vaccine, live, oral DoD measles/mumps /rubella virus vaccine 1993 UNKNOWN 03 Unknown complet ed measles/m umps/rube lla virus vaccine 12/24/93 Given Ambulat ory Pharmac y measles, mumps and rubella virus vaccine 1 1993 Unknown, Provider UNKNOWN 03 Unknown (UNK) complet ed measles, mumps and rubella virus vaccine DoD meningococcal polysaccharid e (MPSV4) 1986 UNKNOWN 32 Unknown complet ed meningoco ccal polysacch aride (MPSV4) 01/30/87 Given Ambulat ory Pharmac y meningococcal polysaccharid e vaccine (MPSV4) 1 1986 Unknown, Provider UNKNOWN 32 Unknown (UNK) complet ed meningoco ccal polysacch aride vaccine (MPSV4) DoD Results Combined list of recent chemistry, hematology and other laboratory results from Department of Defense and Veterans Affairs, ranging from 15 months to all on record, depending upon the facility. Order Name Results Value Reference Range Date Interpretation Specimen Comments Source Chemistry POC Glucose 87 mg/dL 65 - 110 01/16 N Interpretiv e Data: RANDOM AND NO PANIC VALUE. Test results may be erroneously low if patient is severely dehydrated, severely hypotensive , in shock or in a hyperglycem ic-hypermol ar state (with +or without ketosis). [address] [place] [address] Chemistry POC Glucose 103 mg/dL 65 - 110 01/16 N Interpretiv e Data: RANDOM AND NO PANIC VALUE. Test results may be erroneously low if patient is severely dehydrated, severely hypotensive , in shock or in a hyperglycem ic-hypermol ar state (with +or without ketosis). [address] [place] [address] Chemistry Phosphorus 4.0 mg/dL 2.5 - 4.5 01/[address] [place] [address] Chemistry Magnesium Lvl 2.0 mg/dL 1.7 - 2.6 01/[address] [place] [address] Chemistry AST 17 U/L 12 - 39 01/[address] [place] [address] Chemistry Calcium 9.6 mg/dL 8.9 - 10.4 01/[address] [place] [address] Chemistry Albumin 4.2 g/dL 3.5 - 4.8 01/[address] [place] [address] Chemistry Alk Phos 89 U/L 40 - 129 01/16 N Interpretiv e Data: Increased intestinal alkaline phosphatase can be seen in blood group O and B secretors and after fatty meals. [address] [place] [address] Chemistry ALT 11 U/L 17 - 63 01/[address] [place] [address] Chemistry A/G Ratio 1.7 1.5 - 2.0 01/[address] [place] [address] Chemistry Globulin 2.5 g/dL 2.0 - 3.5 01/[address] [place] [address] Chemistry BUN/Creat Ratio 17.8 10.0 - 25.0 01/[address] [place] [address] Chemistry AGAP 12 mmol/L 6 - 16 01/[address] [place] [address] Chemistry Potassium Lvl 3.4 mmol/L 3.5 - 5.1 01/[address] [place] [address] Chemistry Creatinine Level 0.9 mg/dL 0.7 - 1.2 01/[address] [place] [address] Chemistry BUN 16 mg/dL 6 - 20 01/[address] [place] [address] Chemistry Protein Total 6.7 g/dL 6.6 - 8.7 01/[address] [place] [address] Chemistry Bilirubin Total 0.46 mg/dL 0.15 - 1.00 01/[address] [place] [address] Chemistry Sodium 136 mmol/L 136 - 145 01/[address] [place] [address] Chemistry Glucose Lvl 120 mg/dL 75 - 99 01/16 H Interpretiv e Data: Fasting=75- 99 mg/dL Impaired Fasting Glucose= 100 to 125 mg/dL Provisional Diagnosis of Diabetes= equal or greater than 126 mg/dL Non-Fasting = 75-139 mg/dL Impaired Non-Fasting Glucose= 140-199 mg/dL Provisional Diagnosis of Diabetes= equal or greater than 200 mg/dL [address] [place] [address] Chemistry CO2 26 mmol/L 22 - 32 01/[address] [place] [address] Chemistry Chloride 98 mmol/L 98 - 107 01/[address] [place] [address] Hematolog y RBC 4.9 10^6/uL 4.4 - 5.7106 01/[address] [place] [address] Hematolog y WBC 5.7 10^3/uL 4.0 - 10.5103 01/[address] [place] [address] Hematolog y Hemoglobin 15.1 g/dL 13.8 - 17.0 01/[address] [place] [address] Hematolog y RDW CV 12.9 % 11.5 - 14.0 01/[address] [place] [address] Hematolog y MPV 9.7 fL 6.4 - 10.3 01/[address] [place] [address] Hematolog y MCV 84.9 fL 82.0 - 99.0 01/[address] [place] [address] Hematolog y Hematocrit 41.6 % 40.0 - 50.0 01/[address] [place] [address] Hematolog y MCHC 36.3 g/dL 32.0 - 36.0 01/[address] [place] [address] Hematolog y MCH 30.8 pg 28.0 - 33.0 01/[address] [place] [address] Hematolog y Platelets 182 10^3/uL 150 - [id number] 01/[address] [place] [address] Hematolog y Eos Absolute 0.27 10^3/uL 0.00 - 0.05689 01/[address] [place] [address] Hematolog y Monocyte % Auto 10.7 % 4.0 - 11.0 01/[address] [place] [address] Hematolog y Lymph Absolute 1.82 10^3/uL 1.00 - 4.71979 01/[address] [place] [address] Hematolog y Eosinophil % Auto 4.7 % 0.0 - 6.0 01/[address] [place] [address] Hematolog y Hardeman Absolute 0.61 10^3/uL 0.20 - 0.52638 01/[address] [place] [address] Hematolog y nRBC Absolute 0.00 10^6/uL 01/[address] [place] [address] Hematolog y nRBC % Auto 0.0 % 01/[address] Hematolog y Baso Absolute 0.04 10^3/uL 0.00 - 0.82970 01/[address] Hematolog y Basophil % Auto 0.7 % 0.0 - 4.0 01/[address] Hematolog y Imm. Granulocyt e Absolute 0.01 10^3/uL 0.00 - 0.41056 01/[address] Hematolog y Imm. Granulocyt e % 0.2 % 0.0 - 2.0 01/[address] Hematolog y Lymphocyte % Auto 31.8 % 15.0 - 45.0 01/[address] Hematolog y Neutrophil % Auto 51.9 % 40.0 - 80.0 01/[address] Hematolog y Neutro Absolute 2.97 10^3/uL 2.00 - 7.41314 01/[address] Chemistry eGFR CKD EPI 100 mL/min/1 .73_m2 01/16 Interpretiv e Data: Estimated Glomerular Filtration Rate (eGFR) calculated using the 2020 Chronic Kidney Disease-Epi demiology (CKD-EPI) Collaborati on creatinine equation; units of measure are mL/min/1.73 m2. Results are only valid for adults ( 18 years) whose serum creatinine is in steady state. eGFR calculation s are not valid for patients with acute kidney injury and for patients on dialysis. C reatinine-b ased estimates of kidney function may also be inaccurate in patients with reduced creatinine generation due to decreased muscle mass (e.g., malnutritio n, severe hypoalbumin emia, sarcopenia, chronic neuromuscul ar disease, amputations , severe heart failure or liver disease) and in patients with increased creatinine generation due to increased muscle mass (e.g., muscle builders, anabolic steroids) or increased dietary intake. As drug clearance is proportiona l to total GFR and not GFR indexed to body surface area (BSA), in individuals with a BSA substantial ly different than 1.73 m2, drug dosing should be based the reported eGFRvalue de-indexed from BSA by multiplying by the individual s BSA and dividing by 1.73. CKD is diagnosed based on abnormaliti es of kidney structure or function, present for >3 months, with implication s for health and disease. CKD is classified and staged based on cause, eGFR and albuminuria (quantified as urine albumin to creatinine ratio). An eGFR >60 mL/min/1.73 m2 in the absence of increased urine albumin excretion or structural abnormaliti es does not represent CKD.eGFR (mL/min/1.7 3 m2) CKD stage Interpretat ion 90 G1 Normal 60-89 G2 Mild decrease 45-59 G3A Mild to moderate decrease 30-44 G3B Moderate to severe decrease 15-29 G4 Severe decrease <15 G5 Kidney failure [address] [place] [address] Chemistry POC Glucose 104 mg/dL 65 - 110 01/16 N Interpretiv e Data: RANDOM AND NO PANIC VALUE. Test results may be erroneously low if patient is severely dehydrated, severely hypotensive , in shock or in a hyperglycem ic-hypermol ar state (with +or without ketosis). [address] [place] [address] Chemistry POC Glucose 107 mg/dL 65 - 110 01/15 N Interpretiv e Data: RANDOM AND NO PANIC VALUE. Test results may be erroneously low if patient is severely dehydrated, severely hypotensive , in shock or in a hyperglycem ic-hypermol ar state (with +or without ketosis). [address] [place] [address] Chemistry POC Glucose 99 mg/dL 65 - 110 01/15 N Interpretiv e Data: RANDOM AND NO PANIC VALUE. Test results may be erroneously low if patient is severely dehydrated, severely hypotensive , in shock or in a hyperglycem ic-hypermol ar state (with +or without ketosis). [address] [place] [address] Chemistry POC Glucose 106 mg/dL 65 - 110 01/15 N Interpretiv e Data: RANDOM AND NO PANIC VALUE. Test results may be erroneously low if patient is severely dehydrated, severely hypotensive , in shock or in a hyperglycem ic-hypermol ar state (with +or without ketosis). [address] [place] [address] Hematolog y Eosinophil % Auto 3.5 % 0.0 - 6.0 01/[address] [place] [address] Hematolog y Hardeman Absolute 0.56 10^3/uL 0.20 - 0.46008 01/[address] [place] [address] Hematolog y Basophil % Auto 0.8 % 0.0 - 4.0 01/[address] [place] [address] Hematolog y Eos Absolute 0.17 10^3/uL 0.00 - 0.70621 01/[address] [place] [address] Hematolog y Monocyte % Auto 11.4 % 4.0 - 11.0 01/[address] [place] [address] Hematolog y Neutro Absolute 2.65 10^3/uL 2.00 - 7.03570 01/[address] [place] [address] Hematolog y Neutrophil % Auto 54.1 % 40.0 - 80.0 01/[address] [place] [address] Hematolog y Lymph Absolute 1.47 10^3/uL 1.00 - 4.10063 01/[address] [place] [address] Hematolog y Lymphocyte % Auto 30.0 % 15.0 - 45.0 01/[address] [place] [address] Hematolog y Imm. Granulocyt e % 0.2 % 0.0 - 2.0 01/[address] [place] [address] Hematolog y nRBC % Auto 0.0 % 01/[address] [place] [address] Hematolog y Imm. Granulocyt e Absolute 0.01 10^3/uL 0.00 - 0.44317 01/15 N [id number][facility][id number] [facility] Hematolog y Baso Absolute 0.04 10^3/uL 0.00 - 0.99041 01/15 N [id number]Na [facility] Hematolog y nRBC Absolute 0.00 10^6/uL 01/15 N [id number]-Na [facility] Chemistry eGFR CKD EPI 96 mL/min/1 .73_m2 01/15 Interpretiv e Data: Estimated Glomerular Filtration Rate (eGFR) calculated using the 2020 Chronic Kidney Disease-Epi demiology (CKD-EPI) Collaborati on creatinine equation; units of measure are mL/min/1.73 m2. Results are only valid for adults ( 18 years) whose serum creatinine is in steady state. eGFR calculation s are not valid for patients with acute kidney injury and for patients on dialysis. C reatinine-b ased estimates of kidney function may also be inaccurate in patients with reduced creatinine generation due to decreased muscle mass (e.g., malnutritio n, severe hypoalbumin emia, sarcopenia, chronic neuromuscul ar disease, amputations , severe heart failure or liver disease) and in patients with increased creatinine generation due to increased muscle mass (e.g., muscle builders, anabolic steroids) or increased dietary intake. As drug clearance is proportiona l to total GFR and not GFR indexed to body surface area (BSA), in individuals with a BSA substantial ly different than 1.73 m2, drug dosing should be based the reported eGFRvalue de-indexed from BSA by multiplying by the individual s BSA and dividing by 1.73. CKD is diagnosed based on abnormaliti es of kidney structure or function, present for >3 months, with implication s for health and disease. CKD is classified and staged based on cause, eGFR and albuminuria (quantified as urine albumin to creatinine ratio). An eGFR >60 mL/min/1.73 m2 in the absence of increased urine albumin excretion or structural abnormaliti es does not represent CKD.eGFR (mL/min/1.7 3 m2) CKD stage Interpretat ion 90 G1 Normal 60-89 G2 Mild decrease 45-59 G3A Mild to moderate decrease 30-44 G3B Moderate to severe decrease 15-29 G4 Severe decrease <15 G5 Kidney failure 0029A-Na [facility] [place] Hematolog y Hemoglobin 15.6 g/dL 13.8 - 17.0 01/[address] [place] [address] Hematolog y Hematocrit 43.6 % 40.0 - 50.0 01/[address] Hematolog y MCV 86.2 fL 82.0 - 99.0 01/[address] Hematolog y WBC 4.9 10^3/uL 4.0 - 10.5103 01/[address] Hematolog y RBC 5.1 10^6/uL 4.4 - 5.7106 01/[address] [place] [address] Hematolog y MCHC 35.8 g/dL 32.0 - 36.0 01/[address] Hematolog y Platelets 182 10^3/uL 150 - [id number] 01/[address] Hematolog y MCH 30.8 pg 28.0 - 33.0 01/[address] Hematolog y RDW CV 13.3 % 11.5 - 14.0 01/[address] [place] [address] Hematolog y MPV 9.6 fL 6.4 - 10.3 01/[address] Hematolog y IPF % 1.6 % 1.1 - 6.1 01/[address] Chemistry Calcium 9.9 mg/dL 8.9 - 10.4 01/[address] Chemistry Chloride 99 mmol/L 98 - 107 01/[address] Chemistry ALT 12 U/L 17 - 63 01/[address] [place] [address] Chemistry AST 16 U/L 12 - 39 01/[address] Chemistry CO2 29 mmol/L 22 - 32 01/[address] Chemistry Albumin 4.4 g/dL 3.5 - 4.8 01/[address] [place] [address] Chemistry Alk Phos 97 U/L 40 - 129 01/15 N Interpretiv e Data: Increased intestinal alkaline phosphatase can be seen in blood group O and B secretors and after fatty meals. [address] [place] [address] Chemistry Globulin 2.7 g/dL 2.0 - 3.5 01/[address] [place] [address] Chemistry A/G Ratio 1.6 1.5 - 2.0 01/[address] [place] [address] Chemistry BUN/Creat Ratio 15.6 10.0 - 25.0 01/[address] [place] [address] Chemistry Potassium Lvl 3.3 mmol/L 3.5 - 5.1 01/[address] [place] [address] Chemistry AGAP 10 mmol/L 6 - 16 01/[address] [place] [address] Chemistry BUN 14 mg/dL 6 - 20 01/[address] [place] [address] Chemistry Sodium 138 mmol/L 136 - 145 01/[address] [place] [address] Chemistry Bilirubin Total 0.44 mg/dL 0.15 - 1.00 01/[address] [place] [address] Chemistry Creatinine Level 0.9 mg/dL 0.7 - 1.2 01/[address] [place] [address] Chemistry Glucose Lvl 119 mg/dL 75 - 99 01/15 H Interpretiv e Data: Fasting=75- 99 mg/dL Impaired Fasting Glucose= 100 to 125 mg/dL Provisional Diagnosis of Diabetes= equal or greater than 126 mg/dL Non-Fasting = 75-139 mg/dL Impaired Non-Fasting Glucose= 140-199 mg/dL Provisional Diagnosis of Diabetes= equal or greater than 200 mg/dL [address] [place] [address] Chemistry Protein Total 7.1 g/dL 6.6 - 8.7 01/[address] [place] [address] Chemistry Magnesium Lvl 1.9 mg/dL 1.7 - 2.6 01/[address] [place] [address] Chemistry Phosphorus 3.6 mg/dL 2.5 - 4.5 01/[address] [place] [address] Chemistry POC Glucose 90 mg/dL 65 - 110 01/15 N Interpretiv e Data: RANDOM AND NO PANIC VALUE. Test results may be erroneously low if patient is severely dehydrated, severely hypotensive , in shock or in a hyperglycem ic-hypermol ar state (with +or without ketosis). [address] [place] [address] Chemistry POC Glucose 77 mg/dL 65 - 110 01/14 N Interpretiv e Data: RANDOM AND NO PANIC VALUE. Test results may be erroneously low if patient is severely dehydrated, severely hypotensive , in shock or in a hyperglycem ic-hypermol ar state (with +or without ketosis). [address] [place] [address] Chemistry POC Glucose 77 mg/dL 65 - 110 01/14 N Interpretiv e Data: RANDOM AND NO PANIC VALUE. Test results may be erroneously low if patient is severely dehydrated, severely hypotensive , in shock or in a hyperglycem ic-hypermol ar state (with +or without ketosis). [address] [place] [address] Toxicolog y U Opiate Scrn Negative 22 ( 2 6:18 AM) 01/14 N Interpretiv e Data: Cutoff level reported as positive is => 300 ng/ml. FOR MEDICAL PURPOSES ONLY If result is positive, sample will be sent out to a reference laboratory for confirmator y testing via gas chromatogra phy-mass spectometry (GC/MS) [address] [place] [address] Toxicolog y U Cocaine Scrn Negative 21 ( 2 6:18 AM) 01/14 N Interpretiv e Data: Cutoff level reported as positive is => 300 ng/ml. FOR MEDICAL PURPOSES ONLY If result is positive, sample will be sent out to a reference laboratory for confirmator y testing via gas chromatogra phy-mass spectometry (GC/MS) [address] [place] [address] Toxicolog y U Cannab Scrn Negative 29 ( 2 6:18 AM) 01/14 N Interpretiv e Data: Cutoff level reported as positive is => 20 ng/ml. FOR MEDICAL PURPOSES ONLY If result is positive, sample will be sent out to a reference laboratory for confirmator y testing via gas chromatogra phy-mass spectometry (GC/MS) [address] [place] [address] Toxicolog y U PCP Scrn Negative 23 ( 2 6:18 AM) 01/14 N Interpretiv e Data: Cutoff level reported as positive is => 25 ng/ml. FOR MEDICAL PURPOSES ONLY If result is positive, sample will be sent out to a reference laboratory for confirmator y testing via gas chromatogra phy-mass spectometry (GC/MS) [address] [place] [address] Toxicolog y U Oxycodone Scrn Negative 19 ( 2 6:18 AM) 01/14 N Interpretiv e Data: Cutoff level reported as positive is => 100 ng/mL FOR MEDICAL PURPOSES ONLY If result is positive, sample will be sent out to a reference laboratory for confirmator y testing via gas chromatogra phy-mass spectometry (GC/MS) [address] [place] [address] Toxicolog y U Benzodia Scrn Negative 17 ( 2 6:18 AM) 01/14 N Interpretiv e Data: Cutoff level reported as positive is => 200 ng/ml. FOR MEDICAL PURPOSES ONLY If result is positive, sample will be sent out to a reference laboratory for confirmator y testing via gas chromatogra phy-mass spectometry (GC/MS) [address] [place] [address] Toxicolog y U Hemalatha Scrn Negative 27 ( 2 6:18 AM) 01/14 N Interpretiv e Data: Cutoff level reported as positive is => 200 ng/ml FOR MEDICAL PURPOSES ONLY If result is positive, sample will be sent out to a reference laboratory for confirmator y testing via gas chromatogra phy-mass spectometry (GC/MS) [address] [place] [address] Toxicolog y U Amph Scrn Negative 36 ( 2 6:18 AM) 01/14 N Interpretiv e Data: Cutoff level reported as positive is => 1000 ng/ml FOR MEDICAL PURPOSES ONLY If result is positive, sample will be sent out to a reference laboratory for confirmator y testing via gas chromatogra phy-mass spectometry (GC/MS) [address] [place] [address] Chemistry Creatinine , Urine LC 61 mg/dL 01/14 Result Comment: Performed At: [address] [place] [address] [id number] Juan Carlos Arroyo MD Ph:[phone] [place] [address] Chemistry Creatinine 24hr Ur LC COMMENT 01/14 Result Comment: Not applicable [address] [place] [address] Chemistry Metanephri ne/Creatin ine Ratio 62 ug/g 01/14 Result Comment: Reference Range: Adults: 22 - [address] [place] [address] Chemistry Metanephri ne, 24Hr Ur LC COMMENT 01/14 Result Comment: Not applicable This test was developed and its performance characteris tics determined by [facility]. It has not been cleared or approved by the Food and Drug Administrat ion. [address] [place] [address] Chemistry Normetanep h/Creat. Ratio LC 246 ug/g 01/14 Result Comment: Reference Range: Adults: 109 - [address] [place] [address] Chemistry Normetanep hrine, 24Hr Ur LC COMMENT 01/14 Result Comment: Not applicable This test was developed and its performance characteris tics determined by [facility]. It has not been cleared or approved by the Food and Drug Administrat ion. [address] [place] [address] Chemistry POC Glucose 82 mg/dL 65 - 110 01/14 N Interpretiv e Data: RANDOM AND NO PANIC VALUE. Test results may be erroneously low if patient is severely dehydrated, severely hypotensive , in shock or in a hyperglycem ic-hypermol ar state (with +or without ketosis). [address] [place] [address] Chemistry Lab Orders to Add: ldl choleste rol (direct) 01/[address] [place] [address] Chemistry Lab Order(s) Added? Yes ( 2 5:28 AM) 01/[address] [place] [address] Chemistry TSH 1.560 uIU/mL 0.270 - 4.200 01/14 N Interpretiv e Data: Use of biotin supplements greater than 10 mg/day has been shown to affect the accuracy of this test. Providers should encourage patients to cease all biotin supplements for a minimum of 72 hours before phlebotomy to avoid interferenc e. [address] [place] [address] Chemistry eAvg Glucose 117 01/14 Interpretiv e Data: An estimation of the mean blood glucose (MBG) level for the preceding 6-8 weeks is calculated from the HbA1c value. Conditions which shorten RBC survival may give a false low HbA1c and MGB levels. HbA1c and MGB values in the normal range can be seen in patients with wide variations in blood glucose levels. The estimated MBG should be correlated with the patient's self-monito red blood glucose data. [address] [place] [address] Chemistry Hemoglobin A1c 5.7 % 4.8 - 5.9 01/[address] [place] [address] Miscellan eous Sendouts Renin Activity.L C <0.167 ng/mL/hr 01/14 L Result Comment: This test was developed and its performance characteris tics determined by [facility]. It has not been cleared or approved by the Food and Drug Administrat ion. [address] [place] [address] Miscellan eous Sendouts Aldosteron e/Renin Ratio.LC >35.3 01/14 H Result Comment: Units: ng/dL per ng/mL/hr Performed At: [address] [id number] Prince Lemon MD Ph:[phone] [place] [address] Miscellan eous Sendouts Aldosteron e.LC 5.9 ng/dL 01/14 Result Comment: This test was developed and its performance characteris tics determined by [facility]. It has not been cleared or approved by the Food and Drug Administrat ion. [address] [place] [address] Miscellan eous Sendouts Methylmalo lupe, Serum.LC 122 nmol/L 01/14 Result Comment: This test was developed and its performance characteris tics determined by [facility]. It has not been cleared or approved by the Food and Drug Administrat ion. Performed At: [address] [id number] Prince Lemon MD Ph:[phone] [place] [address] Hematolog y IPF % 1.3 % 1.1 - 6.1 01/[address] [place] [address] Hematolog y Hematocrit 41.6 % 40.0 - 50.0 01/[address] [place] [address] Hematolog y MCV 86.8 fL 82.0 - 99.0 01/[address] [place] [address] Hematolog y RBC 4.8 10^6/uL 4.4 - 5.7106 01/[address] [place] [address] Hematolog y Hemoglobin 14.8 g/dL 13.8 - 17.0 01/[address] [place] [address] Hematolog y WBC 5.2 10^3/uL 4.0 - 10.5103 01/[address] [place] [address] Hematolog y MPV 9.7 fL 6.4 - 10.3 01/[address] [place] [address] Hematolog y Platelets 205 10^3/uL 150 - [id number] 01/[address] [place] [address] Hematolog y RDW CV 13.4 % 11.5 - 14.0 01/[address] [place] [address] Hematolog y MCH 30.9 pg 28.0 - 33.0 01/[address] [place] [address] Hematolog y MCHC 35.6 g/dL 32.0 - 36.0 01/[address] [place] [address] Chemistry Albumin 4.3 g/dL 3.5 - 4.8 01/[address] [place] [address] Chemistry Alk Phos 82 U/L 40 - 129 01/14 N Interpretiv e Data: Increased intestinal alkaline phosphatase can be seen in blood group O and B secretors and after fatty meals. [address] [place] [address] Chemistry ALT 10 U/L 17 - 63 01/[address] [place] [address] Chemistry AST 20 U/L 12 - 39 10/10 /[address] [place] [address] Chemistry Calcium 8.9 mg/dL 8.9 - 10.4 01/[address] [place] [address] Chemistry Chloride 103 mmol/L 98 - 107 01/[address] [place] [address] Chemistry CO2 25 mmol/L 22 - 32 01/[address] [place] [address] Chemistry Creatinine Level 0.9 mg/dL 0.7 - 1.2 01/[address] [place] [address] Chemistry Glucose Lvl 95 mg/dL 75 - 99 01/14 N Interpretiv e Data: Fasting=75- 99 mg/dL Impaired Fasting Glucose= 100 to 125 mg/dL Provisional Diagnosis of Diabetes= equal or greater than 126 mg/dL Non-Fasting = 75-139 mg/dL Impaired Non-Fasting Glucose= 140-199 mg/dL Provisional Diagnosis of Diabetes= equal or greater than 200 mg/dL [address] [place] [address] Chemistry Sodium 141 mmol/L 136 - 145 01/[address] [place] [address] Chemistry Bilirubin Total 0.15 mg/dL 0.15 - 1.00 01/[address] [place] [address] Chemistry Protein Total 6.8 g/dL 6.6 - 8.7 01/[address] [place] [address] Chemistry BUN 10 mg/dL 6 - 20 01/[address] [place] [address] Chemistry Potassium Lvl 3.6 mmol/L 3.5 - 5.1 01/14 N Result Comment: RESULT MAY BE INACCURATE DUE TO HEMOLYSIS. PLEASE RESUBMIT IF CLINICALLY INDICATED. [address] [place] [address] Chemistry AGAP 13 mmol/L 6 - 16 01/[address] [place] [address] Chemistry BUN/Creat Ratio 11.1 10.0 - 25.0 01/[address] [place] [address] Chemistry Globulin 2.5 g/dL 2.0 - 3.5 01/[address] [place] [address] Chemistry A/G Ratio 1.7 1.5 - 2.0 01/[address] Toxicolog y Phosphatid ylethanol. LC 364 ng/mL 01/14 H Result Comment: Analyzed compound: PEth 16:0/18:1. 1-palmitoyl -2-oleoyl-s n-glycero-3 -phosphoeth anol. Analysis performed by Liquid Chromatogra phy with Tandem Mass Spectrometr y (LC/MS/MS). Detection limit: 20 ng/mL PEth levels in excess of 20 ng/mL are considered evidence of moderate to heavy ethanol consumption . However, the Center for Substance Abuse Treatment (CSAT) advises caution in interpretat ion and use of biomarkers alone to assess alcohol use. Results should be interpreted in the context of all available clinical and behavioral information . Reference: Substance Abuse and Mental Health Services Administrat ion (2012). The Role of Biomarkers in the Treatment of Alcohol Use Disorders, 2012 Revision. Advisory, Volume 11, Issue 2. This test was developed and its performance characteris tics determined by [facility]. It has not been cleared or approved by the Food and Drug Administrat [facility]. Performed At: 01 [employer] [address] [place] [address] [id number] Vlad [facility] Ph:[phone] [place] [address] Hematolog y Monocyte % Auto 6.8 % 4.0 - 11.0 01/[address] Hematolog y Lymph Absolute 2.30 10^3/uL 1.00 - 4.81575 01/[address] Hematolog y Lymphocyte % Auto 44.5 % 15.0 - 45.0 01/[address] Hematolog y Neutro Absolute 2.23 10^3/uL 2.00 - 7.41333 01/[address] Hematolog y Neutrophil % Auto 43.0 % 40.0 - 80.0 01/[address] Hematolog y Imm. Granulocyt e Absolute 0.03 10^3/uL 0.00 - 0.99390 01/[address] Hematolog y nRBC Absolute 0.05 10^6/uL 01/[address] [place] [address] Hematolog y nRBC % Auto 0.9 % 01/[address] Hematolog y Eosinophil % Auto 4.1 % 0.0 - 6.0 01/[address] [place] [address] Hematolog y Imm. Granulocyt e % 0.6 % 0.0 - 2.0 01/[address] [place] [address] Hematolog y Baso Absolute 0.05 10^3/uL 0.00 - 0.99966 01/[address] Hematolog y Basophil % Auto 1.0 % 0.0 - 4.0 01/[address] Hematolog y Eos Absolute 0.21 10^3/uL 0.00 - 0.52718 01/[address] Hematolog y Hardeman Absolute 0.35 10^3/uL 0.20 - 0.86614 01/[address] [place] [address] Chemistry eGFR CKD EPI 103 mL/min/1 .73_m2 01/14 Interpretiv e Data: Estimated Glomerular Filtration Rate (eGFR) calculated using the 2020 Chronic Kidney Disease-Epi demiology (CKD-EPI) Collaborati on creatinine equation; units of measure are mL/min/1.73 m2. Results are only valid for adults ( 18 years) whose serum creatinine is in steady state. eGFR calculation s are not valid for patients with acute kidney injury and for patients on dialysis. C reatinine-b ased estimates of kidney function may also be inaccurate in patients with reduced creatinine generation due to decreased muscle mass (e.g., malnutritio n, severe hypoalbumin emia, sarcopenia, chronic neuromuscul ar disease, amputations , severe heart failure or liver disease) and in patients with increased creatinine generation due to increased muscle mass (e.g., muscle builders, anabolic steroids) or increased dietary intake. As drug clearance is proportiona l to total GFR and not GFR indexed to body surface area (BSA), in individuals with a BSA substantial ly different than 1.73 m2, drug dosing should be based the reported eGFRvalue de-indexed from BSA by multiplying by the individual s BSA and dividing by 1.73. CKD is diagnosed based on abnormaliti es of kidney structure or function, present for >3 months, with implication s for health and disease. CKD is classified and staged based on cause, eGFR and albuminuria (quantified as urine albumin to creatinine ratio). An eGFR >60 mL/min/1.73 m2 in the absence of increased urine albumin excretion or structural abnormaliti es does not represent CKD.eGFR (mL/min/1.7 3 m2) CKD stage Interpretat ion 90 G1 Normal 60-89 G2 Mild decrease 45-59 G3A Mild to moderate decrease 30-44 G3B Moderate to severe decrease 15-29 G4 Severe decrease <15 G5 Kidney failure [address] [place] [address] Chemistry Magnesium Lvl 1.9 mg/dL 1.7 - 2.6 01/[address] [place] [address] Chemistry Phosphorus 3.3 mg/dL 2.5 - 4.5 01/[address] [place] [address] Chemistry Cholestero l Total 248 mg/dL 130 - 200 01/14 H Interpretiv e Data: ADULT PEDIATRIC DESIRABLE: <200 <170 mg/dL BORDERLINE: 200-239 170-199 mg/dL HIGH: >239 >199 mg/dL [address] [place] [address] Chemistry HDL Cholestero l 29 mg/dL 29 - 71 01/14 N Interpretiv e Data: ADULT PEDIATRIC DESIRABLE: >59 >45 mg/dL BORDERLINE: 40-59 40-45 mg/dL LOW: <40 <40 mg/dL [address] [place] [address] Chemistry Non-HDL Cholestero l 219 mg/dL 30 - 129 01/14 H Interpretiv e Data: ADULT PEDIATRIC DESIRABLE: <160 <120 mg/dL BORDERLINE: 160-189 120-144 mg/dL HIGH: >189 >144 mg/dL Reference: (1) Adult Treatment Panel III (ATP III) Classificat ion by the National Cholesterol Education Program (NCEP) and (2) Expert Panel on Integrated guidelines for Cardiovascu lar Health and Risk Reduction in Children and Adolescents , 2002. [address] [place] [address] Chemistry LDL <0 mg/dL 65 - 130 01/14 L Interpretiv e Data: ADULT PEDIATRIC DESIRABLE: <130 <110 mg/dL BORDERLINE: 130-159 110-129 mg/dL HIGH: >159 >129 mg/dL LDL calculation invalid if Triglycerid es >400 mg/dL. [address] [place] [address] Chemistry Triglyceri lorena 1139 mg/dL 50 - 199 01/14 H Interpretiv e Data: ADULT PEDS(0-9) PEDS(10-19) DESIRABLE: <150 <75 <90 mg/dL BORDERLINE: 150-199 75-99 90-129 mg/dL HIGH: >199 >99 >129 mg/dL If non fasting Triglycerid e >400 mg/dL, recommend performing a fasting lipid panel. [address] [place] [address] Chemistry VLDL 228 mg/dL 8 - 30 01/14 H Interpretiv e Data: VLDL calculation invalid if Triglycerid es >400 mg/dL. [address] [place] [address] Chemistry LDL Chol (Direct) LC 93 mg/dL 01/14 Result Comment: Performed At: 01 [facility] [address] [place], [place] [id number] Alma Andrews MD Ph:[phone] [place] [address] Urinalysi s UA Bacteria 0 /HPF 07/[address] [place] [address] Urinalysi s UA Mucous Rare /LPF 07/[address] [place] [address] Urinalysi s UA WBC 1 /HPF 0 - 5 07/[address] [place] [address] Urinalysi s UA RBC <1 /HPF 0 - 2 07/[address] [place] [address] Miscellan eous Sendouts HCG Tumor Marker LC <1 m[iU]/mL 07/09 Result Comment: [employer] Electro[employer] iluminescen ce Immunoassay (ECLIA) The [employer] HCG + beta assay recognizes the holo-hormon e, human chorionic gonadotropi n (hCG), nicked forms of hCG, the beta-core fragment and the free beta-subuni t in human serum and plasma. Results obtained with different test methods or kits cannot be used interchange ably. This assay is intended for the early detection of . The result should not be used for treatment or for diagnostic purposes without confirmatio n of the diagnosis by another medically established diagnostic product or procedure. This test was developed and its performance characteris tics determined by [facility]. It has not been cleared or approved by the Food and Drug Administrat ion for use as a tumor marker. This test is not interpretab le as a tumor marker in females. Performed At: 01 [facility] [address] [place], [place] [id number] Alma Andrews MD Ph:[phone] [place] [address] Reproduct peyton Studies AFP 2.9 ng/mL 0.0 - 15.0 07/09 N Interpretiv e Data: Use of biotin supplements greater than 10 mg/day has been shown to affect the accuracy of this test. Providers should encourage patients to cease all biotin supplements for a minimum of 72 hours before phlebotomy to avoid interferenc e. [address] [place] [address] Chemistry LDH 156 U/L 135 - 225 07/[address] [place] [address] Hematolog y MCV 87.4 fL 82.0 - 99.0 07/[address] [place] [address] Hematolog y MCH 30.0 pg 28.0 - 33.0 07/[address] [place] [address] Hematolog y Hemoglobin 15.5 g/dL 13.8 - 17.0 07/[address] [place] [address] Hematolog y Hematocrit 45.1 % 40.0 - 50.0 07/[address] [place] [address] Hematolog y IPF % 1.3 % 1.1 - 6.1 07/[address] [place] [address] Hematolog y MCHC 34.4 g/dL 32.0 - 36.0 07/[address] [place] [address] Hematolog y Platelets 204 10^3/uL 150 - [id number] 07/[address] [place] [address] Hematolog y RDW CV 13.0 % 11.5 - 14.0 07/[address] [place] [address] Hematolog y MPV 9.7 fL 6.4 - 10.3 07/[address] [place] [address] Hematolog y WBC 10.3 10^3/uL 4.0 - 10.5103 07/[address] [place] [address] Hematolog y RBC 5.2 10^6/uL 4.4 - 5.7106 07/[address] [place] [address] Chemistry Bilirubin Total 0.51 mg/dL 0.15 - 1.00 07/[address] [place] [address] Chemistry Protein Total 6.8 g/dL 6.6 - 8.7 07/[address] [place] [address] Chemistry BUN 12 mg/dL 6 - 20 07/[address] Chemistry Potassium Lvl 4.0 mmol/L 3.5 - 5.1 07/[address] [place] [address] Chemistry AGAP 12 mmol/L 6 - 16 07/[address] [place] [address] Chemistry Chloride 102 mmol/L 98 - 107 07/[address] [place] [address] Chemistry CO2 27 mmol/L 22 - 32 07/[address] Chemistry Creatinine Level 1.0 mg/dL 0.7 - 1.2 07/[address] Chemistry Glucose Lvl 100 mg/dL 75 - 99 07/01 H Interpretiv e Data: Fasting=75- 99 mg/dL Impaired Fasting Glucose= 100 to 125 mg/dL Provisional Diagnosis of Diabetes= equal or greater than 126 mg/dL Non-Fasting = 75-139 mg/dL Impaired Non-Fasting Glucose= 140-199 mg/dL Provisional Diagnosis of Diabetes= equal or greater than 200 mg/dL [address] [place] [address] Chemistry Sodium 141 mmol/L 136 - 145 07/[address] [place] [address] Chemistry Albumin 4.6 g/dL 3.5 - 4.8 07/[address] Chemistry Alk Phos 102 U/L 40 - 129 07/01 N Interpretiv e Data: Increased intestinal alkaline phosphatase can be seen in blood group O and B secretors and after fatty meals. [address] [place] [address] Chemistry ALT 10 U/L 17 - 63 07/[address] [place] [address] Chemistry AST 14 U/L 12 - 39 07/[address] [place] [address] Chemistry Calcium 9.3 mg/dL 8.9 - 10.4 07/[address] [place] [address] Chemistry BUN/Creat Ratio 12.0 10.0 - 25.0 07/[address] Chemistry Globulin 2.2 g/dL 2.0 - 3.5 07/[address] Chemistry A/G Ratio 2.1 1.5 - 2.0 07/[address] [place] [address] Hematolog y Neutrophil % Auto 72.2 % 40.0 - 80.0 07/[address] [place] [address] Hematolog y Neutro Absolute 7.42 10^3/uL 2.00 - 7.52086 07/[address] [place] [address] Hematolog y Lymphocyte % Auto 19.6 % 15.0 - 45.0 07/[address] Hematolog y Lymph Absolute 2.01 10^3/uL 1.00 - 4.84448 07/[address] [place] [address] Hematolog y Monocyte % Auto 7.0 % 4.0 - 11.0 07/[address] [place] [address] Hematolog y Hardeman Absolute 0.72 10^3/uL 0.20 - 0.40349 07/[address] Hematolog y Eosinophil % Auto 0.8 % 0.0 - 6.0 07/[address] Hematolog y Eos Absolute 0.08 10^3/uL 0.00 - 0.54936 07/[address] [place] [address] Hematolog y Basophil % Auto 0.3 % 0.0 - 4.0 07/[address] [place] [address] Hematolog y Baso Absolute 0.03 10^3/uL 0.00 - 0.16418 07/[address] [place] [address] Hematolog y Imm. Granulocyt e % 0.1 % 0.0 - 2.0 07/[address] [place] [address] Hematolog y Imm. Granulocyt e Absolute 0.01 10^3/uL 0.00 - 0.90693 07/[address] [place] [address] Hematolog y nRBC % Auto 0.0 % 07/[address] [place] [address] Hematolog y nRBC Absolute 0.00 10^6/uL 07/[address] [place] [address] Chemistry eGFR CKD EPI 90 mL/min/1 .73_m2 07/01 Interpretiv e Data: Estimated Glomerular Filtration Rate (eGFR) calculated using the 2020 Chronic Kidney Disease-Epi demiology (CKD-EPI) Collaborati on creatinine equation; units of measure are mL/min/1.73 m2. Results are only valid for adults ( 18 years) whose serum creatinine is in steady state. eGFR calculation s are not valid for patients with acute kidney injury and for patients on dialysis. C reatinine-b ased estimates of kidney function may also be inaccurate in patients with reduced creatinine generation due to decreased muscle mass (e.g., malnutritio n, severe hypoalbumin emia, sarcopenia, chronic neuromuscul ar disease, amputations , severe heart failure or liver disease) and in patients with increased creatinine generation due to increased muscle mass (e.g., muscle builders, anabolic steroids) or increased dietary intake. As drug clearance is proportiona l to total GFR and not GFR indexed to body surface area (BSA), in individuals with a BSA substantial ly different than 1.73 m2, drug dosing should be based the reported eGFRvalue de-indexed from BSA by multiplying by the individual s BSA and dividing by 1.73. CKD is diagnosed based on abnormaliti es of kidney structure or function, present for >3 months, with implication s for health and disease. CKD is classified and staged based on cause, eGFR and albuminuria (quantified as urine albumin to creatinine ratio). An eGFR >60 mL/min/1.73 m2 in the absence of increased urine albumin excretion or structural abnormaliti es does not represent CKD.eGFR (mL/min/1.7 3 m2) CKD stage Interpretat ion 90 G1 Normal 60-89 G2 Mild decrease 45-59 G3A Mild to moderate decrease 30-44 G3B Moderate to severe decrease 15-29 G4 Severe decrease <15 G5 Kidney failure [address] [place] [address] Chemistry Lab Orders to Add: urine culture 07/[address] [place] [address] Chemistry Lab Order(s) Added? Yes (07/01/21 3:25 PM) 07/[address] [place] [address] Chemistry Lab Order(s) Added? Yes (07/01/21 2:38 PM) 07/[address] [place] [address] Chemistry Lab Orders to Add: GC chlamydi a urine 07/[address] [place] [address] Chemistry Lab Orders to Add: GC chlamydi a urine 07/01 Result Comment: No UA in lab. Notified ENS Darvin @ [address] [place] [address] Chemistry Lab Order(s) Added? No, see comment (07/01/21 2:23 PM) 07/[address] [place] [address] Urinalysi s UA Color Yellow 07/[address] [place] [address] Urinalysi s UA Spec [place] 1.019 1.005 - 1.030 07/[address] [place] [address] Urinalysi s UA Appear Clear 07/[address] [place] [address] Urinalysi s UA Clarity Clear 07/[address] [place] [address] Urinalysi s UA Leuk Esterase Negative (07/01/21 2:09 PM) 07/[address] [place] [address] Urinalysi s UA Mucous Rare /LPF 07/[address] [place] [address] Urinalysi s UA Bacteria Rare /HPF 07/[address] [place] [address] Urinalysi s UA WBC 1 /HPF 0 - 5 07/[address] [place] [address] Urinalysi s UA RBC 7 /HPF 0 - 2 07/[address] [place] [address] Urinalysi s UA Glucose Normal (07/01/21 2:09 PM) 07/[address] [place] [address] Urinalysi s UA Bili Negative (07/01/21 2:09 PM) 07/[address] [place] [address] Urinalysi s UA Protein 70 mg/dL 07/[address] [place] [address] Urinalysi s UA Blood Trace *ABN* (07/01/21 2:09 PM) 07/[address] [place] [address] Urinalysi s UA pH 7.0 5.0 - 7.5 07/[address] [place] [address] Urinalysi s UA Nitrite Negative (07/01/21 2:09 PM) 07/[address] [place] [address] Urinalysi s UA Ketones Negative (07/01/21 2:09 PM) 07/[address] [place] [address] Urinalysi s UA Urobilinog en Normal (07/01/21 2:09 PM) 07/[address] [place] [address] Infectiou s Disease GC Scrn Negative 31 (07/01/21 2:09 PM) 07/01 N Interpretiv e Data: The Chlamydia trachomatis and Neisseria gonorrhoeae assays using the Aptima Combo 2 assay kit on [employer] by [employer] are not FDA-approve d for conjunctiva l swab as specimen type. This source is validated and its performance characteris tics have been validated by [facility] IAW CLIA guidelines. [facility] is certified under the CLIA 1988 as qualified to perform high complexity clinical laboratory testing. THESE ASSAYS ARE NOT FDA-CLEARED OR VALIDATED BY THE MANUFACTURE R (Octonius) IN LESS THAN 14 YEAR AGE GROUP [address] [place] [address] Infectiou s Disease Chlamydia Scrn Negative 18 (07/01/21 2:09 PM) 07/01 N Interpretiv e Data: THESE ASSAYS ARE NOT FDA-CLEARED OR VALIDATED BY THE MANUFACTURE R ([employer]) IN LESS THAN 14 YEAR AGE GROUP [address] [place] [address] Vital Signs Combined list of inpatient and outpatient Vital Signs from Department of Defense and Veterans Affairs, ranging from 12 months to all on record, depending upon the facility. Vital Sign Value Date Comments Source Systolic Blood Pressure 158 mm[Hg] 01/17/20 02:30:[address] [place] [address] Diastolic Blood Pressure 104 mm[Hg] 022 02:30:[address] [place] [address] Respiratory Rate 16 br/min 01/16/2022 02:30:[address] [place] [address] Peripheral Pulse Rate 76 bpm 01/16/2022 02:30:[address] [place] [address] Temperature Oral 36.7 Lisa 01/16/2022 02:30:[address] [place] [address] Cuff Size Medium 01/16/2022 02:30:[address] [place] [address] Blood Pressure Location Right arm 01/17/20 02:30:[address] [place] [address] Mean Arterial Pressure, Cuff (Calc) 122 mm[Hg] 01/16/2022 02:30:[address] [place] [address] Blood Pressure Method Automatic 01/16/2022 02:30:[address] [place] [address] Systolic Blood Pressure 206 mm[Hg] 01/17/20 22 18:37:[address] [place] [address] Diastolic Blood Pressure 117 mm[Hg] 022 18:37:[address] [place] [address] Respiratory Rate 17 br/min 01/16/2022 18:37:[address] [place] [address] Peripheral Pulse Rate 66 bpm 01/16/2022 18:37:[address] [place] [address] Temperature Oral 36.6 Lisa 01/16/2022 18:37:[address] [place] [address] Mean Arterial Pressure, Cuff (Calc) 147 mm[Hg] 01/16/2022 18:37:00 [facility] Blood Pressure Method Automatic 01/16/2022 18:37:00 [facility] Blood Pressure Location Left arm 01/17/20 18:37:00 [facility] Cuff Size Medium 01/16/2022 18:37:00 [facility] Temperature Tympanic 36.8 Lisa 01/15/2022 22:17:00 [facility] Cuff Size Medium 01/15/2022 22:17:00 [facility] Respiratory Rate 17 br/min 01/15/2022 22:17:00 [facility] Systolic Blood Pressure 184 mm[Hg] 01/16/20 22:17:00 [facility] Diastolic Blood Pressure 121 mm[Hg] 022 22:17:00 [facility] Peripheral Pulse Rate 74 bpm 01/15/2022 22:17:00 [facility] Mean Arterial Pressure, Cuff (Calc) 142 mm[Hg] 01/15/2022 22:17:00 [facility] Blood Pressure Location Right arm 01/16/20 22:17:00 [facility] Blood Pressure Method Automatic 01/15/2022 22:17:00 [facility] Respiratory Rate 18 br/min 01/15/2022 11:35:00 [facility] Blood Pressure Location Right arm 01/16/20 11:35:00 [facility] Cuff Size Medium 01/15/2022 11:35:00 [facility] Blood Pressure Method Automatic 01/15/2022 11:35:00 [facility] Temperature Oral 36.8 Lisa 01/15/2022 11:35:00 [facility] Temperature Oral 36.7 Lisa 01/15/2022 18:06:00 [facility] Peripheral Pulse Rate 66 bpm 01/15/2022 18:06:00 [facility] Respiratory Rate 18 br/min 01/15/2022 18:06:00 [facility] Systolic Blood Pressure 179 mm[Hg] 01/16/20 18:06:00 [facility] Diastolic Blood Pressure 99 mm[Hg] 18:06:00 [facility] Cuff Size Medium 01/15/2022 18:06:00 [facility] Blood Pressure Location Right arm 01/16/20 18:06:00 [facility] Blood Pressure Method Automatic 01/15/2022 18:06:00 [facility] Mean Arterial Pressure, Cuff (Calc) 126 mm[Hg] 01/15/2022 18:06:00 [facility] Systolic Blood Pressure 163 mm[Hg] 01/17/20 06:00:00 [facility] Diastolic Blood Pressure 98 mm[Hg] 06:00:00 [facility] Mean Arterial Pressure, Cuff (Calc) 120 mm[Hg] 01/16/2022 06:00:00 [facility] Temperature Oral 36.7 Lisa 01/16/2022 06:00:00 [facility] Respiratory Rate 16 br/min 01/16/2022 06:00:00 [facility] Peripheral Pulse Rate 64 bpm 01/16/2022 06:00:00 [facility] Blood Pressure Location Right arm 01/17/20 06:00:00 [facility] Blood Pressure Method Automatic 01/16/2022 06:00:00 [facility] Cuff Size Medium 01/16/2022 06:00:00 [facility] Temperature Temporal Artery 36.4 Lisa 07/09/2021 20:46:00 [facility] Temperature Oral 36.6 Lisa 01/15/2022 06:31:00 [facility] Cuff Size Medium 01/16/2022 21:35:00 [facility] Blood Pressure Location Left arm 01/17/20 21:35:00 [facility] Mean Arterial Pressure, Cuff (Calc) 144 mm[Hg] 01/16/2022 21:35:00 [facility] Systolic Blood Pressure 189 mm[Hg] 01/17/20 21:35:00 [facility] Diastolic Blood Pressure 122 mm[Hg] 022 21:35:00 [facility] Respiratory Rate 17 br/min 01/16/2022 21:35:00 [facility] Blood Pressure Method Automatic 01/16/2022 21:35:[address] [place] [address] Peripheral Pulse Rate 76 bpm 01/16/2022 21:35:[address] [place] [address] Temperature Oral 36.8 Lisa 01/16/2022 21:35:00 [facility] Peripheral Pulse Rate 59 bpm 01/15/2022 14:26:00 [facility] Blood Pressure Method Automatic 01/15/2022 14:26:00 [facility] Blood Pressure Location Left arm 01/16/20 14:26:00 [facility] Cuff Size Medium 01/15/2022 14:26:[address] [place] [address] Temperature Oral 36.6 Lisa 01/15/2022 14:26:00 [facility] Systolic Blood Pressure 185 mm[Hg] 01/16/20 14:26:00 [facility] Diastolic Blood Pressure 103 mm[Hg] 022 14:26:00 [facility] Respiratory Rate 18 br/min 01/15/2022 14:26:00 [facility] Mean Arterial Pressure, Cuff (Calc) 130 mm[Hg] 01/15/2022 14:26:00 [facility] Mean Arterial Pressure, Cuff (Calc) 137 mm[Hg] 01/15/2022 11:41:00 [facility] Peripheral Pulse Rate 62 bpm 01/15/2022 16:37:00 [facility] Systolic Blood Pressure 184 mm[Hg] 01/16/20 16:37:00 [facility] Diastolic Blood Pressure 120 mm[Hg] 16:37:00 [facility] Temperature Oral 36.7 Lisa 01/16/2022 14:38:00 [facility] Respiratory Rate 17 br/min 01/16/2022 14:38:[address] [place] [address] Systolic Blood Pressure 197 mm[Hg] 01/17/20 14:38:00 [facility] Diastolic Blood Pressure 117 mm[Hg] 14:38:[address] [place] [address] Peripheral Pulse Rate 63 bpm 01/16/2022 14:38:00 [facility] Blood Pressure Location Right arm 01/17/20 14:38:00 [facility] Cuff Size Medium 01/16/2022 14:38:00 [facility] Blood Pressure Method Automatic 01/16/2022 14:38:00 [facility] Mean Arterial Pressure, Cuff (Calc) 144 mm[Hg] 01/16/2022 14:38:00 [facility] Systolic Blood Pressure 162 mm[Hg] 01/17/20 11:05:00 [facility] Diastolic Blood Pressure 112 mm[Hg] 11:05:00 [facility] Blood Pressure Method Automatic 01/16/2022 11:05:00 [facility] Blood Pressure Location Right arm 01/17/20 11:05:00 [facility] Cuff Size Medium 01/16/2022 11:05:00 [facility] Respiratory Rate 17 br/min 01/16/2022 11:05:00 [facility] Mean Arterial Pressure, Cuff (Calc) 129 mm[Hg] 01/16/2022 11:05:00 [facility] Temperature Oral 36.6 Lisa 01/16/2022 11:05:00 [facility] Peripheral Pulse Rate 56 bpm 01/16/2022 11:05:00 [facility] Encounters Combined list of: 1) Encounters from Department of Veterans Affairs facilities going backup to the last 18 months, not all VA inpatient encounters are included; 2) Encounters from the Department of Defense facilities going backup to 280 months. Location Location Details Encounter Type Encounter Number Reason For Visit Attending Provider ADM Date DC Date Status Disposition Source [facility]( art Team 1007) OUTPATIENT [id number] STAFF f/u on cat scan ZULY NAVARRETE 05/09 Released with Work/Duty Limitations [facility]( Smart Team 1007) [facility]( ysical Therapy Clinic [facility]) OUTPATIENT [id number] PATELLO FEMORAL SYNDROM E AHLTA SYSTEM ADMINISTRA TOR 05/20 [facility]( Physica l Therapy Clinic [facility]) [facility](Ph ysical Therapy Clinic [facility]) OUTPATIENT [id number] TAWNY DILLON 07/10 Released w/o Limitations [facility]( Physica l Therapy Clinic [facility]) [facility](10 07 Phys Therapy) OUTPATIENT [id number] MARLIN MAI 08/06 Released w/o Limitations [facility]( 1007 Phys Therapy ) [facility](10 07 Phys Therapy) OUTPATIENT [id number] MIKE CASAS 08/16 Released w/o Limitations [facility]( 1007 Phys Therapy ) [facility](De rmatology Clinic [facility]) OUTPATIENT [id number] scaly skin DANIEL RAMIREZ 08/26 Released w/o Limitations [facility]( Dermato logy Clinic [facility]) [facility]( art Team 1007) OUTPATIENT [id number] f/u R leg pain CRESCENCIO ORTIZ 09/16 Released with Work/Duty Limitations [facility]( Smart Team 1007) [facility]( art Team 1007) OUTPATIENT [id number] mri results CRESCENCIO ORTIZ 11/01 Released with Work/Duty Limitations [facility]( [facility]7) [facility]( art Team 1007) OUTPATIENT [id number] f/u CRESCENCIO ORTIZ 11/29 Released with Work/Duty Limitations [facility]( Smart Team 1007) [facility](Op tometry Clinic [facility]) OUTPATIENT [id number] ANOOP WOO 12/05 Released w/o Limitations [facility]( Optomet ry Clinic [facility]) [facility]( art Team 1007) OUTPATIENT [id number] CRESCENCIO ORTIZ 12/31 Released with Work/Duty Limitations [facility]( Smart Team 1007) [facility] OUTPATIENT [id number] Annual PPD convert er f/u LUCIEN HERNANDEZ 01/02 Released w/o Limitations [facility]( Communi ty Health [facility]) [facility](Or thopedic Clinic [facility]) OUTPATIENT [id number] DISORDE RS OF MUSCLE, LIGAMEN T, AND FASCIA RAY DURÁN 01/15 Released with Work/Duty Limitations [facility]( Orthope dic Clinic [facility]) [facility]( art Team 1007) OUTPATIENT [id number] right knee CRESCENCIO ORTIZ 01/31 Released with Work/Duty Limitations [facility]( Smart Team 1007) [facility]) OUTPATIENT [id number] b/p MARCO ALARCON 02/06 Released w/o Limitations [facility]( Family Practic e [facility]) [facility]) OUTPATIENT [id number] headach e X 3 days MARCO ALARCON 03/04 Released w/o Limitations [facility]( Family Practic e Clinic) [facility](Ne urology Clinic [facility]) OUTPATIENT [id number] BURT, HERMINIO 03/10 Released w/o Limitations [facility] Fed [facility]( [facility]) [facility](Co urology [facility]) OUTPATIENT [id number] BURT, HERMINIO 03/12 Released w/o Limitations [facility]( [facility](Co urology [facility]) OUTPATIENT [id number] re do sleep BURT, HERMINIO 03/20 Released w/o Limitations [facility]( [facility]) [facility]( art Team 1007) OUTPATIENT [id number] steriod injecti ons CRESCENCIO ORTIZ 04/08 Released with Work/Duty Limitations [facility]( Smart Team 1007) [facility](Co urology [facility]) OUTPATIENT [id number] cpap BURT HERMINIO 04/09 Released w/o Limitations [facility]( [facility]) [facility](Co urology [facility]) OUTPATIENT [id number] HERMINIO DALLAS 04/14 Released w/o Limitations [facility]( [facility]) [facility]( art Team 1007) OUTPATIENT [id number] CRESCENCIO ORTIZ 05/16 Released with Work/Duty Limitations [facility] Fed [facility]( [facility] 1007) [facility](Ms litary Sick Call [facility] 237) OUTPATIENT [id number] ret BRYAN Moffett 06/13 Released w/o Limitations [facility]( Militar y Sick Call [facility] 237) [facility] OUT[facility]IENT [id number] termina tion KAUSHAL Ashton am 06/13 Released w/o Limitations [facility]( [facility] Conserv [facility]) [facility]( art Team 1007) OUTPATIENT [id number] right knee pain CRESCENCIO ORTIZ 06/23 Released with Work/Duty Limitations [facility]( Smart Team 1007) [facility](Sm art Team 1007) OUTPATIENT [id number] CRESCENCIO Nielsen Marisela 08/08 Released with Work/Duty Limitations [facility]( Smart Team 1007) [facility] ) OUTPATIENT [id number] BLOOD PRESSUR E ANTON HINOJOSA 08/20 Released w/o Limitations [facility]) [facility]) OUTPATIENT [id number] BLOOD PRESSUR E SOHA SCHRADER 09/22 Released w/o Limitations [facility]) [facility]) OUTPATIENT [id number] F/U HTN KAY MEREDITH I 10/18 Released w/o Limitations [facility]) [facility] TELE CONSULT [id number] Elevate d Blood Pressur e 149/111 . See T-Con Notes DAMARIS VELEZ 01/07 [facility]) [facility]) OUTPATIENT [id number] F/U blood pressur KAY Fleming I 01/10 Released w/o Limitations [facility]) [facility]) OUTPATIENT [id number] fu for Blood Pressur e FARIBA SOTO 05/09 Released w/o Limitations [facility] ) [facility] ER, DIRECT TO [facility] [id number] ARNAV DAMON 04/06 DISCHARGED HOME [facility](Anna murphy, Social Work) INPATIENT [id number] Notes Entered by: ESPERANZA DEWEY 08 Apr 2013 0842 ------- ------- ------- ------- -- ANA LAURA screen ESPERANZA DEWEY 04/08 Inpatient- Still a Patient [facility](S urgery, Social Work) [facility](SD Nutrition ) INPATIENT [id number] Notes Entered by: CAIO DASILVA 09 Apr 2013 1347 ------- ------- ------- ------- -- CHAN Middleton 04/09 Inpatient- Still a Patient [facility](S D Nutriti on) [facility](SD General Surg) OUTPATIENT [id number] f/u appt per RAY Matute 04/19 Released with Work/Duty Limitations [facility](S D General Surg) [facility](Eas t [facility] Team 1) OUTPATIENT [id number] EVAL R SIDE SWOLLEN GROIN AREA- HX GULL BLADDER REMOVED 04/2013 (PCM BRENDA) DORITA MARIE 04/29 Released w/o Limitations [facility](E ast [facility] Team 1) [facility](Eas t [facility] Team 1) TELE CONSULT [id number] Notes Entered by: NORMA BANG 04 May 2013 0834 ------- ------- ------- ------- -- KAMARI ERAZO 05/04 Referred for Appointment [facility] ast [facility] Team 1) [facility]as t [facility] Team 1) OUTPATIENT [id number] MOR Fung 05/07 Released w/o Limitations [facility](E ast [facility] Team 1) [facility](SD General Surg) OUTPATIENT [id number] Right Inguina l Hernia (U/S Sched for May 18) CRESCENCIO JACOB 05/27 Released w/o Limitations [facility](S D General Surg) [facility](SD General Surg) OUTPATIENT [id number] F/U IHR CRESCENCIO JACOB 07/08 Released w/o Limitations [facility](S D General Surg) [facility](Eas t [facility] Team 1) OUTPATIENT [id number] Right Knee Pain. PCM Valdemar. ABEL COLEMAN 02/08 Released w/o Limitations [facility] Team 1) [facility] Team 1) TELE CONSULT [id number] Notes Entered by: ABEL COLEMAN 09 Mar 2014 1025 ------- ------- ------- ------- -- Mri results ABEL COLEMAN 03/09 [facility] Team 1) [facility](NT Ortho [facility] Joint Service) OUTPATIENT [id number] DERANGE MENT MENISCU S KNEE KENDRA TUTTLE 03/17 Released w/o Limitations [facility](N Ortho [facility] Service ) [facility] TM 3) OUTPATIENT [id number] Cordelia Seals. [facility] MIKE Faustin 09/15 Released w/o Limitations [facility] TM 3) [facility] TM 3) TELE CONSULT [id number] Notes Entered by: DEVON BELCHER 15 Sep 2014 1041 ------- ------- ------- ------- -- PREVMED KAMARI ROCK 09/15 Referred for Appointment [facility] TM 3) [facility] TM 3) TELE CONSULT [id number] Notes Entered by: ABBY TSAI 16 Sep 2014 1156 ------- ------- ------- ------- -- XRAY KAMARI ALEJANDRA 09/16 Referred for Appointment [facility] TM 3) [facility] TM 3) TELE CONSULT [id number] Notes Entered by: JERMAIN RUBIN 28 Sep 2014 0909 ------- ------- ------- ------- -- Appoint ment Results - GORDO PENAALICIAKAMARI 09/28 Referred for Appointment [facility] TM 3) [facility] TM 3) OUTPATIENT [id number] FU for medicat ion PCM MIKE De Jesus 09/28 Released w/o Limitations [facility] TM 3) [facility](SD Physical Medicine/ Rehab) OUTPATIENT [id number] HYPERTE NSION (SYSTEM IC) JAYLEN HOLT 10/13 Released w/o Limitations [facility](S D Physica l Medicin e/Rehab ) [facility] TM 3) OUTPATIENT [id number] Left knee swellin g, not properl y alignaraceli g KADE RODRIGUEZ ([facility]) 09/12 Released w/o Limitations [facility] TM 3) [facility] TM 1) TELE CONSULT [id number] Notes Entered by: BING FARR 13 Sep 2015 1344 ------- ------- ------- ------- -- PREVMED A1C BING FARR 09/12 Released to Self Care [facility] TM 1) [facility] TM 1) OUTPATIENT [id number] f/u HTN TIARRA KRAFT I 10/16 Released w/o Limitations [facility] TM 1) [facility] TM 2) TELE CONSULT [id number] Notes Entered by: BOUBACAR FONTANA T 23 Oct 2015 1023 ------- ------- ------- ------- -- NPV RAD ( OLD PCM OSORIO ) pt. is checkin g the consult for xray / lta. MARY JANE ROE 10/22 Referred for Appointment [facility] Med [facility]MH TM 2) [facility]LE [facility] [id number] Notes Entered by: KAMARI EPNA 23 Jan 2016 0947 ------- ------- ------- ------- -- NPV EDF (Manas) SORIN LOVELL 01/22 Released to Self Care [facility] Med PCMH TM 2) [facility] Tm) OUTPATIENT [id number] Hyperte stefany JOHANSENEVELYN 01/31 Released w/o Limitations [facility](K M Int Med Sv Tm) [facility] OUTPATIENT [id number] Rash underne ath breast area,he adaches ,noises in rt ear LEANNE DELCID 06/17 Released w/o Limitations [facility] Med PCMH TM 2) [facility] TELE CONSULT [id number] Notes Entered by: YOLA LOVELL N 19 Jul 2016 0909 ------- ------- ------- ------- -- NPV EDF ( MANAS) MADELEINE OLMSTEAD 07/19 Referred for Appointment [facility](K M Fam Med PCMH TM 2) [facility] OUTPATIENT [id number] Eval sleep apnea, right ear clogged MIRIAM VIVEROS 10/30 Released w/o Limitations [facility] Med PCMH TM 3) [facility](SD Audiology Assessmen t) OUTPATIENT [id number] Ortizitu TRISTAN Lemus 12/12 Released w/o Limitations [facility](S D Audiolo gy Assessm ent) [facility] Med [facility]MH TM 2) TELE CONSULT [id number] Notes Entered by: DARÍO TRUJILLO 07 Jan 2017 1321 ------- ------- ------- ------- -- NPV Order SORIN LOVELL 01/07 Released to Self Care [facility] Med PCMH TM 2) [facility] Med [facility] TM 2) TELE CONSULT [id number] Notes Entered by: RENATO CALDERON 07 Jan 2017 1402 ------- ------- ------- ------- -- NPV others (CPAP setting ) SORIN LOVELL 01/07 Released to Self Care [facility] Med PCMH TM 2) [facility] PCMH TM 2) TELE CONSULT [id number] Notes Entered by: DARÍO TRUJILLO 15 Jan 2017 1321 ------- ------- ------- ------- -- NPV Referra KAMARI Schumacher 01/15 Referred for Appointment [facility](K M Fam Med PC[facility] TM 2) [facility] Med [facility] TM 2) TELE CONSULT [id number] Notes Entered by: BOUBACAR FONTANA 09 Jun 2017 1216 ------- ------- ------- ------- -- request ing a letter for restric tion ( torsten delcid ) pt. went to ER and req. to have KAMARI PENA 06/09 Referred for Appointment [facility](K M Fam Med PC[facility] TM 2) [facility] Med [facility] TM 2) TELE CONSULT [id number] Notes Entered by: YOLA LOVELL 05 Aug 2017 1043 ------- ------- ------- ------- -- EDDina ( MANAS) SORIN LOVELL 08/05 Released to Self Care [facility](K M Fam Med [facility] TM 2) [facility](SD Audiology Assessmen t) OUTPATIENT [id number] aa-- JULIETH SOLO 08/14 Released w/o Limitations [facility](S D Audiolo gy Assessm ent) [facility] TM 2) TELE CONSULT [id number] Notes Entered by: EMMANUEL OLMSTEAD 16 Jan 2018 1454 ------- ------- ------- ------- -- RH- Referra l Request DEBI BASURTOIS THERESA NBA 01/16 [facility] TM 2) [facility] TM 1) TELE CONSULT [id number] Notes Entered by: GERALD ATKINSON 10 Apr 2018 1346 ------- ------- ------- ------- -- Prevmed Lilibeth Colonos copy MARY JANE Diego 04/10 Referred for Appointment [facility] TM 1) [facility] TM 2) OUTPATIENT [id number] PREVMED WME CARMELO LEMON 04/21 Released w/o Limitations [facility] PCM TM 2) [facility] TM 1) OUTPATIENT [id number] consult for randall montaño and referra londono for surgery DEDRICK MCKINLEY 08/25 Released w/o Limitations [facility] TM 1) [facility](SD Cardiolog y Echo) OUTPATIENT [id number] EKG shows criteri a for LVH YUDITH WEBB 09/24 Released w/o Limitations [facility](S D Cardiol ogy Echo) [facility](SD Ophthalmo logy General) OUTPATIENT [id number] Unspeci fied age-rel ated MORRO Harris 09/30 Released w/o Limitations [facility](S D Ophthal mology General ) [facility] TM 2) OUTPATIENT [id number] DANIEL Santizo 02/24 Released w/o Limitations [facility] Med PCMH TM 2) [facility](KM Fam Med PC[facility] TM 2) TELE CONSULT [id number] Notes Entered by: RASHMI CONDE 09 Apr 2019 0715 ------- ------- ------- ------- -- MRI YAZMIN BELLSamantha 04/09 Referred for Appointment [facility] Med PCMH TM 2) [facility] PCMH TM 2) OUTPATIENT [id number] F/up MRI, discuss bp meds, knee pain DANIEL CONDE 04/14 Released w/o Limitations [facility](K M Fam Med PC[facility] TM 2) [facility] PCMH TM 2) OUTPATIENT [id number] VIRTUAL : [phone] MED REFILL/ HEADACH E PT REQUEST DANIEL JUNIOR 01/31 Released w/o Limitations [facility] Med PCMH TM 2) [facility] PCMH TM 2) OUTPATIENT [id number] In clinic, headach e. DANIEL CONDE 02/01 Released w/o Limitations [facility](K M Fam Med PC[facility] TM 2) [facility] Med PCMH TM 2) OUTPATIENT [id number] virtual appt / lab , mri results DANIEL CONDE 03/23 Released w/o Limitations [facility](K M Fam Med PCMH TM 2) [facility] Med PCMH TM 2) OUTPATIENT [id number] Virtual - [id number] - MRI result (PCM Mckinley) DANIEL CONDE 05/09 Released w/o Limitations [facility](K M Fam Med PCMH TM 2) [facility] Outpatient Encounter [id number] 03/17 [facility] Outpatient Encounter [id number] Diagnos is: ICD-10- CM Z02.89 Encount er for other adminis trative examina GUANACO Delong 05/17 [facility] Outpatient Encounter [id number] Diagnos is: ICD-10- CM Z02.89 Encount er for other adminis trative examashley GUANACO Delong [facility] 06/03 [facility] Outpatient Encounter [id number] 06/07 [facility] Procedures Combined list of: 1) Procedures from Department of Veterans Affairs facilities going back up to thelast 18 months, not all [place] non-surgical procedures are included; 2) All procedures from the Department of Defense facilities. Procedure Procedure Type Code Date Perfomer Comments Sourc e No data available for this section [facility] EDUCATIONAL SUPPLIES, SUCH BOOKS, TAPES, AND PAMPHLETS, FOR THE PATIENT'S EDUCATION AT COST TO PHYSICIAN OR OTHER QUALIFIED HEALTH PLASTICS FACTORY WORKER [facility] EDUCATIONAL SUPPLIES, SUCH BOOKS, TAPES, AND PAMPHLETS, FOR THE PATIENT'S EDUCATION AT COST TO PHYSICIAN OR OTHER QUALIFIED HEALTH PLASTICS FACTORY WORKER [facility] SCREENING TEST, PURE TONE, AIR ONLY [facility] POLYSOMNOGRAPHY;AGE 8 YEARS/OLDER,SLEEP STAGING W 4/MORE ADDITIONAL PARAMETERS OF SLEEP,W INITIATION OF CONTINUOUS POSITIVE AIRWAY PRESSURE THERAPY/BILEVEL VENTILATION,ATTENDED BY A TECHNOLOGIST 2006 [facility] ARTHROCENTESIS, ASPIRATION AND/OR INJECTION, MAJOR JOINT OR BURSA (EG, SHOULDER, HIP, KNEE, SUBACROMIAL BURSA); WITHOUT ULTRASOUND GUIDANCE 2006 [facility] POLYSOMNOGRAPHY; AGE 8 YEARS OR OLDER, SLEEP STAGING WITH 4 OR MORE ADDITIONAL PARAMETERS OF SLEEP, ATTENDED BY A TECHNOLOGIST 2005 [facility] POLYSOMNOGRAPHY; AGE 6 YEARS OR OLDER, SLEEP STAGING WITH 4 OR MORE ADDITIONAL PARAMETERS OF SLEEP, ATTENDED BY A TECHNOLOGIST 2005 [facility] POLYSOMNOGRAPHY; AGE 6 YEARS OR OLDER, SLEEP STAGING WITH 4 OR MORE ADDITIONAL PARAMETERS OF SLEEP, ATTENDED BY A TECHNOLOGIST 2005 [facility] IMMUNIZATION ADMINISTRATION (INCLUDES PERCUTANEOUS, INTRADERMAL, SUBCUTANEOUS, OR INTRAMUSCULAR INJECTIONS); 1 VACCINE (SINGLE OR COMBINATION VACCINE/TOXOID) 2005 [facility] DETERMINATION OF REFRACTIVE STATE 2005 [facility] APPLICATION OF A MODALITY TO 1 OR MORE AREAS; HOT OR COLD PACKS 2005 [facility] TISSUE EXAMINATION BY JULIEN SLIDE OF SAMPLES FROM SKIN, HAIR, OR NAILS FOR FUNGI OR ECTOPARASITE OVA OR MITES (EG, SCABIES) 2005 [facility] APPLICATION OF A MODALITY TO 1 OR MORE AREAS; HOT OR COLD PACKS 2005 [facility] APPLICATION OF A MODALITY TO 1 OR MORE AREAS; HOT OR COLD PACKS 2005 [facility] THERAPEUTIC ACTIVITIES, DIRECT (ONE-ON-ONE) PATIENT CONTACT (USE OF DYNAMIC ACTIVITIES TO IMPROVE FUNCTIONAL PERFORMANCE), EACH 15 MINUTES 2005 [facility] APPLICATION OF A MODALITY TO 1 OR MORE AREAS; HOT OR COLD PACKS 2005 [facility] THERAPEUTIC ACTIVITIES, DIRECT (ONE-ON-ONE) PATIENT CONTACT (USE OF DYNAMIC ACTIVITIES TO IMPROVE FUNCTIONAL PERFORMANCE), EACH 15 MINUTES 2005 [facility] DETERMINATION OF REFRACTIVE STATE 2005 [facility] SCREENING TEST OF VISUAL ACUITY, QUANTITATIVE, BILATERAL 2005 [facility] OPHTHALMOLOGICAL SERVICES: MEDICAL EXAMINATION AND EVALUATION, WITH INITIATION OR CONTINUATION OF DIAGNOSTIC AND TREATMENT PROGRAM; COMPREHENSIVE, ESTABLISHED PATIENT, 1 OR MORE VISITS 2005 [facility] OPHTHALMOLOGICAL SERVICES: MEDICAL EXAMINATION AND EVALUATION WITH INITIATION OF DIAGNOSTIC AND TREATMENT PROGRAM; COMPREHENSIVE, NEW PATIENT, 1 OR MORE VISITS 2005 [facility] THERAPEUTIC ACTIVITIES, DIRECT (ONE-ON-ONE) PATIENT CONTACT (USE OF DYNAMIC ACTIVITIES TO IMPROVE FUNCTIONAL PERFORMANCE), EACH 15 MINUTES 2005 [facility] RANGE OF MOTION MEASUREMENTS AND REPORT (SEPARATE PROCEDURE); EACH EXTREMITY (EXCLUDING HAND) OR EACH TRUNK SECTION (SPINE) 2005 [facility] CARDIOVASCULAR STRESS TEST USING MAXIMAL OR SUBMAXIMAL TREADMILL OR BICYCLE EXERCISE, CONTINOUS ELECTROCARDIOGRAPHIC MONITORING, PHARMACOLOGIC STRESS; INTERPRETATION AND REPORT ONLY 2004 [facility] ELECTROCARDIOGRAM, ROUTINE ECG WITH AT LEAST 12 LEADS; WITH INTERPRETATION AND REPORT 2004 [facility] ELECTROCARDIOGRAM, ROUTINE ECG WITH AT LEAST 12 LEADS; WITH INTERPRETATION AND REPORT 2004 [facility] OPHTHALMOLOGICAL SERVICES: MEDICAL EXAMINATION AND EVALUATION, WITH INITIATION OR CONTINUATION OF DIAGNOSTIC AND TREATMENT PROGRAM; INTERMEDIATE, ESTABLISHED PATIENT 2004 [facility] OPHTHALMOLOGICAL SERVICES: MEDICAL EXAMINATION AND EVALUATION, WITH INITIATION OR CONTINUATION OF DIAGNOSTIC AND TREATMENT PROGRAM; INTERMEDIATE, ESTABLISHED PATIENT 2004 [facility] OPHTHALMOLOGICAL SERVICES: MEDICAL EXAMINATION AND EVALUATION, WITH INITIATION OR CONTINUATION OF DIAGNOSTIC AND TREATMENT PROGRAM; INTERMEDIATE, ESTABLISHED PATIENT 2004 [facility] OPHTHALMOLOGICAL SERVICES: MEDICAL EXAMINATION AND EVALUATION, WITH INITIATION OR CONTINUATION OF DIAGNOSTIC AND TREATMENT PROGRAM; INTERMEDIATE, ESTABLISHED PATIENT 2004 [facility] SPECIAL REPORTS SUCH INSURANCE FORMS, MORE THAN THE INFORMATION CONVEYED IN THE USUAL MEDICAL COMMUNICATIONS OR STANDARD REPORTING FORM 2004 [facility] PHARMACOLOGIC MANAGEMENT, INCLUDING PRESCRIPTION, USE, AND REVIEW OF MEDICATION WITH NO MORE THAN MINIMAL MEDICAL PSYCHOTHERAPY 2004 [facility] PHARMACOLOGIC MANAGEMENT, INCLUDING PRESCRIPTION, USE, AND REVIEW OF MEDICATION WITH NO MORE THAN MINIMAL MEDICAL PSYCHOTHERAPY 2004 [facility] PHARMACOLOGIC MANAGEMENT, INCLUDING PRESCRIPTION, USE, AND REVIEW OF MEDICATION WITH NO MORE THAN MINIMAL MEDICAL PSYCHOTHERAPY 2004 [facility] PHARMACOLOGIC MANAGEMENT, INCLUDING PRESCRIPTION, USE, AND REVIEW OF MEDICATION WITH NO MORE THAN MINIMAL MEDICAL PSYCHOTHERAPY 2004 [facility] SPECIAL REPORTS SUCH INSURANCE FORMS, MORE THAN THE INFORMATION CONVEYED IN THE USUAL MEDICAL COMMUNICATIONS OR STANDARD REPORTING FORM 2004 [facility] WAIVER SERVICES; NOT OTHERWISE SPECIFIED (NOS) 2020 [facility] WAIVER SERVICES; NOT OTHERWISE SPECIFIED (NOS) 2019 [facility] WAIVER SERVICES; NOT OTHERWISE SPECIFIED (NOS) 2019 [facility] OPHTHALMOLOGICAL SERVICES: MEDICAL EXAMINATION AND EVALUATION WITH INITIATION OF DIAGNOSTIC AND TREATMENT PROGRAM; COMPREHENSIVE, NEW PATIENT, 1 OR MORE VISITS 2018 [facility] ECHOCARDIOGRAPHY,TRANS THORACIC,REAL-TIME W IMAGE DOCUMENTATION (2D),INCLUDES M-MODE RECORDING,WHEN PERFORMED,COMPLETE,WIT H SPECTRAL DOPPLER ECHOCARDIOGRAPHY,AND W COLOR FLOW DOPPLER ECHOCARDIOGRAPHY 2018 [facility] ELECTROCARDIOGRAM, ROUTINE ECG WITH AT LEAST 12 LEADS; INTERPRETATION AND REPORT ONLY 2018 [facility] ONLINE ASSESS &MANAG SERV PROVIDE,A QUAL NONPHYS HCP TO AN ESTABLISHED PAT/GUARDIAN,NOT ORIGINAT [facility] RELAT ASSESS &MANAG SERV PROVIDE W/IN THE PREV 7 DAYS,USE THE [employer] 2017 [facility] TYMPANOMETRY (IMPEDANCE TESTING) 2017 [facility] URINALYSIS, BY DIP STICK OR TABLET REAGENT FOR BILIRUBIN, GLUCOSE, HEMOGLOBIN, KETONES, LEUKOCYTES, NITRITE, PH, PROTEIN, SPEC GRAVITY, UROBILINOGEN, ANY NUMBER OF CONSTITUENTS; W/O MICRO, NON-AUTO 2017 [facility] EDUCATIONAL SUPPLIES, SUCH BOOKS, TAPES, AND PAMPHLETS, FOR THE PATIENT'S EDUCATION AT COST TO PHYSICIAN OR OTHER QUALIFIED HEALTH PLASTICS FACTORY WORKER 2016 [facility] ELECTROCARDIOGRAM, ROUTINE ECG WITH AT LEAST 12 LEADS; WITH INTERPRETATION AND REPORT 2016 [facility] MEDICATION THERAPY MGT SERVICE(S) PROVIDED,A PHARMACIST,INDIV,FACE- TO-FACE W PATIENT,WITH ASSESS & INTERVENE IF PROVIDED;EA ADDITION 15 MINUTES (LIST SEPARATELY IN ADDITION TO CODE FOR PRIM SERVICE) 2015 [facility] ONLINE ASSESS &MANAG SERV PROVIDE,A QUAL NONPHYS HCP TO AN ESTABLISHED PAT/GUARDIAN,NOT ORIGINAT [facility] RELAT ASSESS &MANAG SERV PROVIDE W/IN THE PREV 7 DAYS,USE THE [employer] NETWORK 2014 [facility] IMMUNIZATION ADMINISTRATION (INCLUDES PERCUTANEOUS, INTRADERMAL, SUBCUTANEOUS, OR INTRAMUSCULAR INJECTIONS); 1 VACCINE (SINGLE OR COMBINATION VACCINE/TOXOID) 2014 [facility] POSTOPERATIVE FOLLOW-UP VISIT, NORMALLY INCLUDED IN THE SURGICAL PACKAGE, INDICATE THAT EVALUATION & MANAGEMENT SERVICE WAS PERFORMED DURING A POSTOPERATIVE PERIOD REASON RELATED ORIGINAL PROCEDURE 2013 [facility] UNLISTED SPECIAL SERVICE, PROCEDURE OR REPORT 2013 [facility] POSTOPERATIVE FOLLOW-UP VISIT, NORMALLY INCLUDED IN THE SURGICAL PACKAGE, INDICATE THAT EVALUATION & MANAGEMENT SERVICE WAS PERFORMED DURING A POSTOPERATIVE PERIOD REASON RELATED ORIGINAL PROCEDURE 2013 [facility] CHOLECYSTECTOMY 2013 [facility] INTRAOPERATIVE CHOLANGIOGRAM 2013 [facility] POSTOPERATIVE FOLLOW-UP VISIT, NORMALLY INCLUDED IN THE SURGICAL PACKAGE, INDICATE THAT EVALUATION & MANAGEMENT SERVICE WAS PERFORMED DURING A POSTOPERATIVE PERIOD REASON RELATED ORIGINAL PROCEDURE 2013 [facility] POSTOPERATIVE FOLLOW-UP VISIT, NORMALLY INCLUDED IN THE SURGICAL PACKAGE, INDICATE THAT EVALUATION & MANAGEMENT SERVICE WAS PERFORMED DURING A POSTOPERATIVE PERIOD REASON RELATED ORIGINAL PROCEDURE 2013 [facility] MEDICAL NUTRITION THERAPY; INITIAL ASSESSMENT AND INTERVENTION, INDIVIDUAL, [id number] WITH THE PATIENT, EACH 15 MINUTES 2013 [facility] POSTOPERATIVE FOLLOW-UP VISIT, NORMALLY INCLUDED IN THE SURGICAL PACKAGE, INDICATE THAT EVALUATION & MANAGEMENT SERVICE WAS PERFORMED DURING A POSTOPERATIVE PERIOD REASON RELATED ORIGINAL PROCEDURE 2013 [facility] CASE MANAGEMENT, EACH 15 MINUTES 2013 [facility] LAPAROSCOPY, SURGICAL; CHOLECYSTECTOMY WITH CHOLANGIOGRAPHY 2013 [facility] ELECTROCARDIOGRAM, ROUTINE ECG WITH AT LEAST 12 LEADS; INTERPRETATION AND REPORT ONLY 2013 [facility] BLOOD PRESSURE MEASURED (CKD)(DM) 2007 [facility] DETERMINATION OF REFRACTIVE STATE 2004 [facility] THERAPEUTIC PROCEDURE, 1 OR MORE AREAS, EACH 15 MINUTES; THERAPEUTIC EXERCISES TO DEVELOP STRENGTH AND ENDURANCE, RANGE OF MOTION AND FLEXIBILITY 2001 [facility] APPLICATION OF A MODALITY TO 1 OR MORE AREAS; IONTOPHORESIS, EACH 15 MINUTES 2001 [facility] APPLICATION OF A MODALITY TO 1 OR MORE AREAS; IONTOPHORESIS, EACH 15 MINUTES 2001 [facility] APPLICATION OF A MODALITY TO 1 OR MORE AREAS; IONTOPHORESIS, EACH 15 MINUTES 2001 [facility] APPLICATION OF A MODALITY TO 1 OR MORE AREAS; IONTOPHORESIS, EACH 15 MINUTES 2001 [facility] APPLICATION OF A MODALITY TO 1 OR MORE AREAS; IONTOPHORESIS, EACH 15 MINUTES 2001 [facility] APPLICATION OF A MODALITY TO 1 OR MORE AREAS; IONTOPHORESIS, EACH 15 MINUTES 2001 [facility] APPLICATION OF A MODALITY TO 1 OR MORE AREAS; IONTOPHORESIS, EACH 15 MINUTES 2001 [facility] APPLICATION OF A MODALITY TO 1 OR MORE AREAS; IONTOPHORESIS, EACH 15 MINUTES 2001 [facility] PURE TONE AUDIOMETRY (THRESHOLD); AIR ONLY 2000 [facility] EDUCATIONAL SUPPLIES, SUCH BOOKS, TAPES, AND PAMPHLETS, FOR THE PATIENT'S EDUCATION AT COST TO PHYSICIAN OR OTHER QUALIFIED HEALTH PLASTICS FACTORY WORKER 2000 [facility] Ophthalmological New Patient Start Comprehensive Care Ophthalmological New Patient Start Comprehensive Care [id number] 2018 MORRO BASSETT [facility] ECG Interpretation And Report Only ECG Interpretation And Report Only [id number] 2018 DEDRICK MCKINLEY Normal sinus rhythm at 69 bpm with criteria for LVH with tall R on 1 and aVL. Abnormal EKG [facility] Svc Qual Nonphys Healthcare Prof Estab Patient Internet Med Svc Qual Nonphys Healthcare Prof Estab Patient [id number] 2017 MADELEINE OLMSTEAD Tympanometry Tympanometry [id number] 2017 JULIETH SOLO Comprehensive Audiometry Comprehensive Audiometry [address]Supervised Services Provision Of Educational Supplies -Supervised Services Provision Of Educational Supplies [id number] 2016 TRISTAN MERAZ Tympanometry With Reflex Threshold Measurements Tympanometry With Reflex Threshold Measurements [id number] 2016 TRISTAN MERAZ Comprehensive Audiometry Comprehensive Audiometry 29193 2016 TRISTAN MERAZ Medication Management By Pharmacist Each Additional 15 Min Medication Management By Pharmacist Each Additional 15 Min [id number] 2015 EVELYN JOHANSEN Med Management By Pharmacist Initial 15 Min New Patient Med Management By Pharmacist Initial 15 Min New Patient [id number] 2015 EVELYN JOHANSEN [facility] Internet Med Svc Qual Nonphys Healthcare Prof Estab Patient Internet Med Svc Qual Nonphys Healthcare Prof Estab Patient 32301 2014 FAY RUBIN [facility] Immunization Administration One Vaccine Immunization Administration One Vaccine 62189 2014 MIKE FU [facility] Tdap Vaccine Tdap Vaccine 49205 2014 MIKE FU [facility] Postoperative Visit, Without Charge Postoperative Visit, Without Charge 78430 2013 BONILLA GRIFFITH [facility] Postoperative Visit, Without Charge Postoperative Visit, Without Charge 10160 2013 RAY MATIAS [facility] Medical Nutrition Therapy Initial A e ment, Intervention Medical Nutrition Therapy Initial Assessment, Intervention 32701 2013 CHAN DASILVA [facility] Case Management, each 15 minutes 2013 ESPERANZA DEWEY [facility] A e ment & Intervention Blood Pre ure Measured Assessment & Intervention Blood Pressure Measured [id number] LALA CAMACHO [facility] Audiogram (Screening) Audiogram (Screening) 15739 2006 KAUSHAL DE LOS SANTOS [facility] Polys W/ Four Or More Addit Sleep Robin Init CPAP/Bilev Vent 2006 HERMINIO DALLAS [facility] Arthrocentesis Aspiration Of Knee Joint Arthrocentesis Aspiration Of Knee Joint 11665 2006 CRESCENCIO ORTIZ [facility] Ophthalmological Prior Patient Start Comprehensive Care Ophthalmological Prior Patient Start Comprehensive Care 69741 2005 ANOOP WOO Determination Of Refractive State Determination Of Refractive State 78725 2005 ANOOP WOO [facility] Skin Lesion JULIEN Prep Skin Lesion JULIEN Prep 04261 2005 DANIEL RAMIREZ [facility] Physical Medicine Physical Therapy Evaluation Physical Medicine Physical Therapy Evaluation 25475 2005 MIKE CASAS Modalities Ultrasound Modalities Ultrasound 36262 2005 MIKE CASAS Modalities Cryotherapy Cold Packs Modalities Cryotherapy Cold Packs 28218 2005 MIKE CASAS Physical Therapy: ___ Se ion Segments, 15 Minutes Each Physical Therapy: ___ Session Segments, 15 Minutes Each 10611 2005 MIKE CASAS Physical Medicine Physical Therapy Re-Evaluation Physical Medicine Physical Therapy Re-Evaluation 28130 2005 TAWNY DILLON [facility] PT A e ment Kinetic Training Initial 30 Minutes PT Assessment Kinetic Training Initial 30 Minutes [id number] 2005 TAWNY DILLON [facility] Waiver services; not otherwise specified (NOS) DANIEL CONDE [facility] Social History Combined list of available smoking, tobacco, and other social history from [facility] facilities. Social History Type Response Date Comment Sourc e Sex Representation Male (finding) 04/12/2020 Un known Organization Tobacco Exposure to Secondhand Smoke: No. Yes-current everyday cigarette user Cigarette use:. 0.5 Average PACKS per day: (10 cigarettes = 0.5 packs). 10 Total years of smoking cigarettes:. 5 Total pack years:. Never-other tobacco user (not cigarettes) Other Tobacco use:. Ambulatory Pharmacy Sexual Orientation Ambula tory Pharmacy Gender identity Ambulator y Pharmacy This section is an empty social history section. [facility] Assessment and Plan Combined list of future care activities from [facility] of Defense and Veterans Affairs facilities (e.g., assessment and plan notes, appointments, orders, and referrals). Additional future care activities may be listed in the Plan of Care section. Result Assessment and Plan Date Source Assessment and Plan Extracted from:Title : Discharge Summary Author: BARBARA SHERMAN Date: 01/16/22 1. T IA 1. T IA M RI, MRA brain negative for acute ischemic event. Patient continued to be without stroke deficits d uring admission. TTE showing m oderate concentric left ventricular hypertrophy. U nlikely a TIA, however continuing single antiplatelet therapy a nd high intensity statin f or atherosclerotic prevention. -Continue ASA 81mg daily a nd atorvastatin 80 mg daily 2. H ypertensive urgency H istory of longstanding chronically elevated BP in 200s/120s on four different anti-hypertensives. Labs placed to evaluate for hyperaldosteronism, pheochromocytoma. R enal artery ultrasound unable to be obtained inpatient, p cody obtain outpatient. U ncontrolled MELODIE highest on differential along with these etiologies. - increased amlodipine to 10 mg -Continue valsartan 160 mg daily - Goal BP <180 systolic - labs in for secondary causes -CV extended H olter monitor -Renal artery ultrasound as an outpatient 3. H ypertriglyceridemia L ipid studies reveal Triglyceride levels >1000 and, Total cholesterol elevated to 248. Patient was started on high intensity statin overnight. No abdominal pain or signs/symptoms that would point to a pancreatitis during admission. However, given this patient's risk factors for frequent alcohol use he is at increased risk of pancreatitis. - Patient started on Lipitor 80 as above. - Consider fenofibrate/gemfibrozil in outpatient setting 4. A lcohol user > 5 drinks per week from history. Low concern for alcohol withdrawal supported by history. E levated BRAXTON on presentation 5. O SA - Obstructive sleep apnea N on-compliant with CPAP MELODIE likely contributing to HTN. Stable O2 and respiration currently - Will require re-evaluation by sleep medicine on discharge 6. T obacco dependence C urrent smoker with 10 year smoking history, 3/4 pack per day ~15 years. - Nicotine patch 14 mg Orders: amLODIPine(amLODIPine 10 mg oral tablet), 1 tab(s), Oral, Daily, # 90 tab(s), 3 total refill(s), Maintenance, 1 tab(s) Oral Daily, Pharmacy: [facility] [Federal Rx: #90 last filled 01/16/22] aspirin(aspirin 81 mg oral delayed release tablet), 1 tab(s), Oral, every 24 hr, # 30 tab(s), 0 total refill(s), Maintenance, 1 tab(s) Oral every 24 hr, Pharmacy: [facility] [Last filled 01/16/22] hydroCHLOROthiazide(hydroCHLORO thiazide 25 mg oral tablet), 1 tab(s), Oral, Daily, for blood pressure, # 90 tab(s), 3 total refill(s), Maintenance, 1 tab(s) Oral Daily,Instr:for blood pressure, Pharmacy: [facility] [Federal Rx: #90 last filled 01/16/22] atorvastatin(Lipitor 80 mg oral tablet), 1 tab(s), Oral, every 24 hr, # 30 tab(s), 0 total refill(s), Maintenance, 1 tab(s) Oral every 24 hr, Pharmacy: [facility] [Last filled 01/16/22] valsartan(valsartan 160 mg oral tablet), 1 tab(s), Oral, Daily, for blood pressure, # 90 tab(s), 3 total refill(s), Maintenance, 1 tab(s) Oral Daily,Instr:for blood pressure, Pharmacy: [facility] [Federal Rx: #90 last filled 01/16/22] CV Extended Holter Monitor Pharmacy Discharge Consult Referral Request 2.0 Barbara Sherman MD , , [facility] Internal Medicine Preliminary P [facility] ----- I have reviewed the above documentation, examined the patient and discussed case with housestaff on rounds. I agree with documentation and treatment plan. Jeanette Miller M.D. Staff Hospitalist [facility] Extracted from:Title: Influenza Screening Author: VANE SEGOVIA Date: 01/14/22 IMMUNIZATION SERVICES SCREENING Patient was s creened and offered pneumococcal and influenza vaccines; patient CONTRAINDICATED at this time.refused vaccination. IMMUNIZATION SERVICES SCREENING Patient was s creened for influenza vaccine; Influenza is out of stock at [facility]?at this time. Extracted from:Title: Urology clinic ER f/u right orchitis pending short interval f/u US/labs Author: RUI SCHMIDT PA Date: 07/10/21 1. H ematuria W ill obtain repeat ua micro if + will plan for cysto/CT hematuria. Ordered: Urinalysis Microscopic 2. O rchitis Reviewed u /s report with patient. Per patient sx are resolving on abx. Will obtain u/s for short interval assessment r/u abscess vs neoplasm with comparison to u/s . Obtain labs for tumor markers. f/u F2F or by telemed. Ordered: HCG Tumor Marker [id number] Lactate Dehydrogenase Urinalysis Microscopic Rui Schmidt PA-C [facility] Dept. of Urology [phone] 11/15/2024 0029A-[facility] Assessment and Plan Extracted from:Title : Discharge Summary Author: BARBARA SHERMAN Date: 01/16/22 1. T IA 1. T IA M RI, MRA brain negative for acute ischemic event. Patient continued to be without stroke deficits d uring admission. TTE showing m oderate concentric left ventricular hypertrophy. U nlikely a TIA, however continuing single antiplatelet therapy a nd high intensity statin f or atherosclerotic prevention. -Continue ASA 81mg daily a nd atorvastatin 80 mg daily 2. H ypertensive urgency H istory of longstanding chronically elevated BP in 200s/120s on four different anti-hypertensives. Labs placed to evaluate for hyperaldosteronism, pheochromocytoma. R enal artery ultrasound unable to be obtained inpatient, p cody obtain outpatient. U ncontrolled MELODIE highest on differential along with these etiologies. - increased amlodipine to 10 mg -Continue valsartan 160 mg daily - Goal BP <180 systolic - labs in for secondary causes -CV extended H olter monitor -Renal artery ultrasound as an outpatient 3. H ypertriglyceridemia L ipid studies reveal Triglyceride levels >1000 and, Total cholesterol elevated to 248. Patient was started on high intensity statin overnight. No abdominal pain or signs/symptoms that would point to a pancreatitis during admission. However, given this patient's risk factors for frequent alcohol use he is at increased risk of pancreatitis. - Patient started on Lipitor 80 as above. - Consider fenofibrate/gemfibrozil in outpatient setting 4. A lcohol user > 5 drinks per week from history. Low concern for alcohol withdrawal supported by history. E levated BRAXTON on presentation 5. O SA - Obstructive sleep apnea N on-compliant with CPAP MELODIE likely contributing to HTN. Stable O2 and respiration currently - Will require re-evaluation by sleep medicine on discharge 6. T obacco dependence C urrent smoker with 10 year smoking history, 3/4 pack per day ~15 years. - Nicotine patch 14 mg Orders: amLODIPine(amLODIPine 10 mg oral tablet), 1 tab(s), Oral, Daily, # 90 tab(s), 3 total refill(s), Maintenance, 1 tab(s) Oral Daily, Pharmacy: [facility] [Federal Rx: #90 last filled 01/16/22] aspirin(aspirin 81 mg oral delayed release tablet), 1 tab(s), Oral, every 24 hr, # 30 tab(s), 0 total refill(s), Maintenance, 1 tab(s) Oral every 24 hr, Pharmacy: [facility] [Last filled 01/16/22] hydroCHLOROthiazide(hydroCHLORO thiazide 25 mg oral tablet), 1 tab(s), Oral, Daily, for blood pressure, # 90 tab(s), 3 total refill(s), Maintenance, 1 tab(s) Oral Daily,Instr:for blood pressure, Pharmacy: [facility] [Federal Rx: #90 last filled 01/16/22] atorvastatin(Lipitor 80 mg oral tablet), 1 tab(s), Oral, every 24 hr, # 30 tab(s), 0 total refill(s), Maintenance, 1 tab(s) Oral every 24 hr, Pharmacy: [facility] [Last filled 01/16/22] valsartan(valsartan 160 mg oral tablet), 1 tab(s), Oral, Daily, for blood pressure, # 90 tab(s), 3 total refill(s), Maintenance, 1 tab(s) Oral Daily,Instr:for blood pressure, Pharmacy: [facility] [Federal Rx: #90 last filled 01/16/22] CV Extended Holter Monitor Pharmacy Discharge Consult Referral Request 2.0 Barbara Sherman MD , , [facility] Internal Medicine Preliminary P [facility] ----- I have reviewed the above documentation, examined the patient and discussed case with housestaff on rounds. I agree with documentation and treatment plan. Jeanette Miller M.D. Staff Hospitalist [facility] Extracted from:Title: Influenza Screening Author: VANE SEGOVIA Date: 01/14/22 IMMUNIZATION SERVICES SCREENING Patient was s creened and offered pneumococcal and influenza vaccines; patient CONTRAINDICATED at this time.refused vaccination. IMMUNIZATION SERVICES SCREENING Patient was s creened for influenza vaccine; Influenza is out of stock at [facility]?at this time. Extracted from:Title: Urology clinic ER f/u right orchitis pending short interval f/u US/labs Author: RUI SCHMIDT PA Date: 07/10/21 1. H ematuria W ill obtain repeat ua micro if + will plan for cysto/CT hematuria. Ordered: Urinalysis Microscopic 2. O rchitis Reviewed u /s report with patient. Per patient sx are resolving on abx. Will obtain u/s for short interval assessment r/u abscess vs neoplasm with comparison to u/s . Obtain labs for tumor markers. f/u F2F or by telemed. Ordered: HCG Tumor Marker [id number] Lactate Dehydrogenase Urinalysis Microscopic Rui Schmidt PA-C [facility] Dept. of Urology [phone] 11/15/2024 0029-[facility] Functional Status Combined list of recent functional and cognitive assessments recorded at [facility] Functional Gravette Measurement (FIM) Scale: 1 = Total Assistance (Subject = 0% +), 2 = Maximal Assistance (Subject = 25% +), 3 = Moderate Assistance (Subject = 50% +), 4 = Minimal Assistance (Subject = 75% +), 5 = Supervision, 6 = Modified Gravette (Device), 7 = Complete Gravette (Timely, Safely). Assessment Date/Time Source Assessment Type Assessment Skill Assessment Score Assessment Details FUNCTIONAL 01/16/22 Current Home Treatments CPAP 01/16/22Lunch Percent 76-100% 01/16/22ADLs Independent Activity Status ADL Ambulating, Reposition every 2 hours Antiembolism Device Intermittent pneumatic compression devices, knee high, bilat Positioning/Pressu re Reducing Devices Pillow Sensory Compensatory Devices None Patient Position Head of bed elevated, Self repositioning Tolerance of Position Tolerates well Diet Type reg Personal Care Provided Linen change 01/15/22Items At Bedside None 01/14/22Dinner Percent 76-100%
== END 2024-11-15 09:48 | disposition home or self-care (01) ==
PROVIDERS: PCP Family Medicine; Visit Provider Family Medicine
DX: H90.12 Conductive hearing loss, unilateral, left ear, with unrestricted hearing on the contralateral side (principal); H93.13 Tinnitus, bilateral; H74.8X3 Other specified disorders of middle ear and mastoid, bilateral; H61.21 Impacted cerumen, right ear; H73.893 Other specified disorders of tympanic membrane, bilateral
CPT/HCPCS: 92557; 92567